=== PATIENT | male | born 1990 | race African-American/Black ===

== ENCOUNTER 2020-03-21 23:14 | Emergency (ER) | payer MEDICAID, OTHER ==
[~2020-03-21] VITALS: Ht 190.5 cm; Wt 147.4 kg
[2020-03-21 23:26] VITALS: BP 170/90
[2020-03-22] MEDS ORDERED: KETOROLAC TROMETH 60MG/2ML VIAL IM ONE (02:30)
== END 2020-03-22 02:50 | disposition home or self-care (01) ==
LOC: ER 23:14
DX: S33.5XXA Sprain of ligaments of lumbar spine, initial encounter (principal); M54.16 Radiculopathy, lumbar region; M25.552 Pain in left hip; E11.9 Type 2 diabetes mellitus without complications; X58.XXXA Exposure to other specified factors, initial encounter; Y93.89 Activity, other specified; Y92.89 Other specified places as the place of occurrence of the external cause; Y99.8 Other external cause status
CPT/HCPCS: 72100; 72192; 96372; 99284; J1885

== ENCOUNTER 2021-11-17 09:11 | Emergency (ER) | payer MEDICAID ==
[~2021-11-17] VITALS: Ht 190.5 cm; Wt 155.1 kg
[2021-11-17 09:42] LABS: Urine Bacteria NONE SEEN /hpf (None Seen); Urine Blood 1+ /uL (Negative); Urine Mucus FEW (None Seen); Urine Specific Gravity 1.025 (1.001-1.035); Urine WBC 20 /hpf (0 - 3)
[2021-11-17 10:00] LABS: Basophils # (auto) 0.1 10 ^3/uL (0-0.2); Basophils % (auto) 0.6 % (0.0-2.0); Eosinophils # (auto) 0.5 10 ^3/uL (0-0.8); Eosinophils % (auto) 5.9 % (0.0-7.0); Hematocrit 43.9 % (41.0-53.0); Hemoglobin 15.6 g/dL (13.5-17.5); Lymphocytes # (auto) 2.5 10 ^3/uL (0.4-5.4); Lymphocytes % (auto) 29.1 % (10.0-50.0); Mean Corpuscular Hgb Conc. 35.5 g/dL (32.0-36.0); Mean Corpuscular Volume 81.8 fL (80.0-100.0); Monocytes # (auto) 0.5 10 ^3/uL (0-1.3); Monocytes % (auto) 6.2 % (0.0-12.0); Neutrophils % (auto) 58.2 % (37.0-80.0); Nucleated Red Blood Cells % 0.4 %; Red Blood Cells 5.36 10^6/uL (4.5-5.90); Red Cell Distribution Width 13.8 % (11.8-14.3); White Blood Cell 8.7 10^3/uL (4.4-10.8)
[2021-11-17 10:27] LABS: Potassium 3.8 mmol/L (3.5-5.1)
[2021-11-17 10:36] LABS: Albumin 3.7 g/dL (3.4-5.0); BUN/Creatinine Ratio 7.1; Bilirubin, Total 0.6 mg/dL (0.2-1.0); Calcium 8.8 mg/dL (8.5-10.1); Total Protein 8.2 g/dL (6.4-8.2)
[2021-11-17] MEDS ORDERED: KETOROLAC TROMETH 60MG/2ML VIAL IM ONE (10:45)
[2021-11-17 12:15] LABS: Lactic Acid w/Reflex 2.4 mmol/L (0.4-2.0)
[2021-11-17] MEDS ORDERED: cefTRIAXone 1GM/50ML D5W 50 ML IV ONE (13:15)
[2021-11-17] MEDS ORDERED: SODIUM CHLORIDE 0.9% 1,000 ML IV ONE (13:15)
[2021-11-17] MEDS ORDERED: CIPR-173 PO (15:46)
[2021-11-17 16:01] VITALS: BP 139/72
== END 2021-11-17 16:04 | disposition home or self-care (01) ==
LOC: ER 09:11
DX: N39.0 Urinary tract infection, site not specified (principal); E11.9 Type 2 diabetes mellitus without complications; Z88.0 Allergy status to penicillin
CPT/HCPCS: 36415; 74176; 80053; 81001; 83605; 83690; 85025; 87040; 96365; 96372; 99284; J0696; J1885; J7030

== ENCOUNTER → 2023-12-27 | Emergency (ER) | payer MEDICAID ==
[~2023-12-27] VITALS: Ht 190.5 cm; Wt 144.0 kg
[~2023-12-27] MED LIST: CIPR-173 PO
[2023-12-27 21:52] VITALS: BP 134/75; PULSE 84; RESP 18; O2SAT 98
== END | disposition left against medical advice (07) ==
LOC: ER 21:18
DX: S99.911A Unspecified injury of right ankle, initial encounter (principal); Z53.21 Procedure and treatment not carried out due to patient leaving prior to being seen by health care provider; W20.8XXA Other cause of strike by thrown, projected or falling object, initial encounter; Y93.89 Activity, other specified; Y92.89 Other specified places as the place of occurrence of the external cause; Y99.8 Other external cause status
CPT/HCPCS: 73610; 73630

== ENCOUNTER 2024-06-28 06:37 | Inpatient (IN) | payer MEDICAID ==
[~2024-06-28] VITALS: Ht 188 cm; Wt 144.7 kg
--- NOTE | 2024-06-28 06:46 | ECG ---
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
--- NOTE | 2024-06-28 07:04 | ED.PDOC ---
HPI Comments 34y M who presents to the ED via EMS for chief complaint of chest pain. Pt states he was watching TV earlier this AM and states he suddenly started to have chest pain with shorntess of breath and called EMS to the scene. Pt states his chest pain was substernal, rating the pain 5/10, non-radiating, with no associated exacerbating or relieving factors. Pt states he took 324 ASA with no relief of symptoms prior to ED arrival. EMS states pt was not given anything additional prior to ED arrival as 911 operaor advised pt to take additional ASA just prior to ED arrival. Pt in the ED, has normal vitals. Pt otherwise states he has defect to repair pulmonic valve in 1 month at [facility]. Pt otherwise denies any other symptoms at this time. 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, Allergies Allergies: Coded Allergies: Penicillins (Verified Allergy, Severe, 11/17/21) Home Meds Active Scripts Ciprofloxacin Hcl (Cipro) 500 Mg Tab, 500 MG PO BID for 7 Days, #14 BOTTLE Prov:JEROME GARRISON MD 11/17/21 Information Source: Patient, Emergency Med Personnel Mode of Arrival: EMS Brought in by: EMS Past Medical History PAST MEDICAL HISTORY: DM Surgical History: Denies all surgeries Family History Family History: Reviewed,noncontributory to illness, No family hx of Cancer, No family hx of DM, No family hx of Heart cm, No family hx of HTN, No family hx ofKidney cm, No family hx of Liver cm, No family hx of Lung cm, No family hx of Stroke Social History Smoker: Non-Smoker Alcohol: Denies ETOH Use Drugs: Denies Drug Use Lives In: Home Constitutional: denies: chills, diaphoresis, fatigue, fever, malaise, sweats, weakness, others EENTM: denies: blurred vision, double vision, ear bleeding, ear discharge, ear drainage, ear pain, ear ringing, eye pain, eye redness, hearing loss, mouth pain, mouth swelling, nasal discharge, nose bleeding, nose congestion, nose pain, photophobia, tearing, throat pain, throat swelling, voice changes, others Respiratory: denies: cough, hemoptysis, orthopnea, SOB at rest, shortness of breath, SOB with excertion, stridor, wheezing, others Cardiovascular: reports: chest pain; denies: dizzy spells, diaphoresis, Dyspnea on exertion, edema, irregular heart beat, left arm pain, lightheadedness, palpitations, PND, syncope, others Gastrointestinal: denies: abdomen distended, abdominal pain, blood streaked bowels, constipated, diarrhea, dysphagia, difficulty swallowing, hematemesis, melena, nausea, poor appetite, poor fluid intake, rectal bleeding, rectal pain, vomiting, others Genitourinary: denies: burning, dysuria, flank pain, frequency, hematuria, incontinence, penile discharge, penile sore, pain, testicle pain, testicle swelling, urgency, others Neurological: denies: dizziness, fainting, headache, left sided numbness, left sided weakness, numbness, paresthesia, pre-existing deficit, right sided numbness, right sided weakness, seizure, speech problems, tingling, tremors, weakness, others Musculoskeletal: denies: back pain, gout, joint pain, joint swelling, muscle pain, muscle stiffness, neck pain, others Integumetry: denies: bruises, change in color, change in hair/nails, dryness, laceration, lesions, lumps, rash, wounds, others Allergic/Immunocompromised: denies: Difficulty Healing, Frequent Infections, Hives, Itching, others Hematologic/Lymphatic: denies: anemia, blood clots, easy bleeding, easy bruising, swollen glands, others Endocrine: denies: excessive hunger, excessive sweating, excessive thirst, excessive urination, flushing, intolerance to cold, intolerance to heat, unexplained weight gain, unexplained weight loss, others Psychiatric: denies: anxiety, bipolar disorder, depression, hopeless, panic disorder, schizophrenia, sleepless, suicidal, others All Other Systems: Reviewed and Negative Physical Exam General Appearance: No Apparent Distress, Normal HEENT: Normal ENT Inspection, Pharynx Normal, TMs Normal Neck: Full Range of Motion, Non-Tender, Normal, Normal Inspection Respiratory: Chest Non-Tender, Lungs Clear, No Accessory Muscle Use, No Respira tory Distress, Normal Breath Sounds Cardiovascular: No Edema, No JVD, No Murmur, No Gallop, Normal Peripheral Pulses, Regular Rate/Rhythm Breast Exam: Deferred Gastrointestinal: No Organomegaly, Non Tender, No Pulsatile Mass, Normal Bowel Sounds, Soft Genitalia: Deferred Pelvic: Deferred Rectal: Deferred Extremities: No calf tenderness, Normal capillary refill, Normal inspection, Normal range of motion, Non-tender, No pedal edema Musculoskeletal : Apperance: Normal Neurologic: Alert, radiochemical technician II-XII nml as Tested, No Motor Deficits, Normal Affect, Normal Mood, No Sensory Deficits Cerebellar Function: Normal Reflexes: Normal Skin: Dry, Normal Color, Warm Lymphatic: No Adenopathy Was a procedure done? Was a procedure done?: No CP Differential Dx Differential Diagnosis: Angina, Electrolyte Disorder Differential Diagnosis: Chest Wall Pain, Costochondritis, Pericarditis X-Ray, Labs, Meds, VS Vital Signs Date Time Temp Pulse Resp B/P (MAP) Pulse Ox O2 Delivery O2 Flow Rate FiO2 06/28/24 08:02 99.5 97 18 132/87 (102) 94 99.5 06/28/24 08:02 97 06/28/24 07:28 96 06/28/24 06:40 99.5 97 16 132/87 (102) 93 06/28/24 06:38 95 Lab Test 06/28/24 08:25 06/28/24 06:56 Range/Units Troponin I High Sensitivity < 3 L < 3 L </=54 ng/L White Blood Count 21.5 H 4.4-10.8 10^3/uL Red Blood Count 5.30 4.5-5.90 10^6/uL Hemoglobin 15.1 13.5-17.5 g/dL Hematocrit 43.6 41.0-53.0 % Mean Corpuscular Volume 82.2 80.0-100.0 fL Mean Corpuscular Hemoglobin 28.6 28.0-32.0 pg Mean Corpuscular Hemoglobin Concent 34.7 32.0-36.0 g/dL Red Cell Distribution Width 13.9 11.8-14.3 % Platelet Count 262 140-450 10^3/uL Mean Platelet Volume 8.8 6.9-10.8 fL Neutrophils (%) (Auto) 74.2 37.0-80.0 % Lymphocytes (%) (Auto) 13.3 10.0-50.0 % Monocytes (%) (Auto) 7.7 0.0-12.0 % Eosinophils (%) (Auto) 4.3 0.0-7.0 % Basophils (%) (Auto) 0.5 0.0-2.0 % Neutrophils # (Auto) 16.0 H 1.6-8.6 10 ^3/uL Lymphocytes # (Auto) 2.9 0.4-5.4 10 ^3/uL Monocytes # (Auto) 1.6 H 0-1.3 10 ^3/uL Eosinophils # (Auto) 0.9 H 0-0.8 10 ^3/uL Basophils # (Auto) 0.1 0-0.2 10 ^3/uL Nucleated Red Blood Cells 0.0 % Sodium Level 135 L 136-145 mmol/L Potassium Level 4.3 3.5-5.1 mmol/L Chloride Level 100 98-107 mmol/L Carbon Dioxide Level 29 20-31 mmol/L Anion Gap 6 5-15 Blood Urea Nitrogen 9 9-23 mg/dL Creatinine 1.27 0.700-1.30 mg/dL Glomerular Filtration Rate Calc 77 >90 mL/min BUN/Creatinine Ratio 7.1 L 10.0-20.0 Serum Glucose 210 H 74-106 mg/dL Calcium Level 10.3 8.7-10.4 mg/dL [place] [id number] Ph: [phone] DIAGNOSTIC IMAGING Diagnostic Imaging Report : [id number] Signed PATIENT: JONEL BAILEY ACCT: [id number] UNIT: [id number] : 1990 LOC: ER ROOM / BED: / AGE / SEX: 34 / M ADM STATUS: REG ER SERVICE 0643 ORDERING PHYSICIAN: MICHAEL LOPEZ MD PROCEDURE(s): CXR2 - CHEST TWO VIEWS ROUTINE REASON: chest pain ORDER NUMBER(s): [id number], ACCESSION NUMBER(s): [id number] XY CHEST TWO VIEWS ROUTINE CLINICAL HISTORY: Chest pain COMPARISON: None. TECHNIQUE: Frontal and lateral view of the chest was obtained FINDINGS: Lines and Tubes: None Lungs: Bibasilar atelectasis. No focal consolidation. Pleura: No effusion. No pneumothorax. Cardiomediastinal contours: Unremarkable Bones: No acute osseous abnormality. IMPRESSION: 1. No acute cardiopulmonary disease. ATED BY: LIBBY LU MD DICTATED DATE/TIME: 06/28/24725 SIGNED BY: LIBBY LU MD SIGNED DATE/TIME: 06/28/24725 CC: Time of 1ST Reevaluation: 07:35 Reevaluation 1ST: Unchanged Patient Education/Counseling: Diagnosis, Treatment Family Education/Counseling: No Family Present Departure 1 Departure Time of Disposition: 10:00 (Patient presented with chest pain that was concerning for possible STEMI, ACS, PE, Pneumonia, Muscle Strain, COPD, Dissection. Data: 1. I ordered and reviewed the result of at least 3 labs including a CBC, BMP, and Troponin. 2. I independently interpreted the following tests: EKG which shows sinus rhythm a and Chest X-ray which shows benign chest.Risk:This patient has a high risk of morbidity due to further diagnostic testing or treatment and may suffer from an acute cardiac or respiratory disorder. Workup reveals elevated white count but no infectious symptoms. Patient may have had an elevated white count secondary to the nausea and vomiting. Patient is high-risk for chest pain with follows with manager distribution for possible valve replacements and patient should be admitted for further workup and possible expert consultation. ) Impression: Primary Impression: Acute chest pain Additional Impression: Elevated white blood cell count, unspecified Qualified Codes: D72.829 - Elevated white blood cell count, unspecified Disposition: ADMITTED INPATIENT Admit to: Med Surg Condition: Serious Critical Care Note Critical Care Time?: No Stability Stability form required: No Heart Score Heart Score: Heart Score Response (Comments) Value History Moderate Suspicious 1 EKG Repolarization Disturb 1 Age <45 0 Risk Factors 1 or 2 risk factors 1 Troponin 1-2 x's Normal limit 1 Total 4 I personally scribed for MICHAEL LOPEZ MD ([email or web address]) on 06/28/24 at 07:04. Electronically submitted by Elvie Erickson ([employer]). I personally scribed for MICHAEL LOPEZ MD ([email or web address]) on 06/28/24 at 08:32. Electronically submitted by Elvie Erickson ([employer]). MICHAEL LOPEZ MD Jun 28, 2024 07:04
[2024-06-28 07:20] LABS: Chloride 100 mmol/L (98-107); Potassium 4.3 mmol/L (3.5-5.1); Sodium 135 mmol/L (136-145)
[2024-06-28 07:21] LABS: Anion Gap 6 (5-15); Carbon Dioxide 29 mmol/L (20-31)
[2024-06-28 07:22] LABS: Calcium 10.3 mg/dL (8.7-10.4)
[2024-06-28 07:25] LABS: Basophils # (auto) 0.1 10 ^3/uL (0-0.2); Basophils % (auto) 0.5 % (0.0-2.0); Eosinophils # (auto) 0.9 10 ^3/uL (0-0.8); Eosinophils % (auto) 4.3 % (0.0-7.0); Hematocrit 43.6 % (41.0-53.0); Hemoglobin 15.1 g/dL (13.5-17.5); Lymphocytes # (auto) 2.9 10 ^3/uL (0.4-5.4); Lymphocytes % (auto) 13.3 % (10.0-50.0); Mean Corpuscular Hemoglobin 28.6 pg (28.0-32.0); Mean Corpuscular Hgb Conc. 34.7 g/dL (32.0-36.0); Mean Corpuscular Volume 82.2 fL (80.0-100.0); Monocytes # (auto) 1.6 10 ^3/uL (0-1.3); Monocytes % (auto) 7.7 % (0.0-12.0); Neutrophils % (auto) 74.2 % (37.0-80.0); Platelet Count (auto) 262 10^3/uL (140-450); Red Cell Distribution Width 13.9 % (11.8-14.3); White Blood Cell 21.5 10^3/uL (4.4-10.8)
[2024-06-28 07:26] LABS: BUN/Creatinine Ratio 7.1 (10.0-20.0); Blood Urea Nitrogen 9 mg/dL (9-23); Glucose 210 mg/dL (74-106)
--- NOTE | 2024-06-28 07:29 | DVH ---
XY CHEST TWO VIEWS ROUTINE CLINICAL HISTORY: Chest pain COMPARISON: None. TECHNIQUE: Frontal and lateral view of the chest was obtained FINDINGS: Lines and Tubes: None Lungs: Bibasilar atelectasis. No focal consolidation. Pleura: No effusion. No pneumothorax. Cardiomediastinal contours: Unremarkable Bones: No acute osseous abnormality. IMPRESSION: 1. No acute cardiopulmonary disease.
[2024-06-28] MEDS ORDERED: LORazepam 0.5 MG TAB PO PRN (11:00)
[2024-06-28] MEDS ORDERED: DEXTROSE (50%) 50ML SYRG IV PRN (11:00)
[2024-06-28] MEDS ORDERED: ACETAMINOPHEN 325 MG TAB PO PRN (11:00)
[2024-06-28] MEDS ORDERED: ZOLPIDEM TARTRATE 5 MG TAB PO PRN (11:00)
[2024-06-28] MEDS ORDERED: ONDANSETRON HCL 4 MG/2 ML VIAL IV PRN (11:00)
[2024-06-28] MEDS ORDERED: NITROGLYCERIN 0.4 MG SL TAB SL PRN (11:00)
[2024-06-28] MEDS ORDERED: MORPHINE SULFATE INJ 2 MG/ml SYRG IV PRN (11:00)
--- NOTE | 2024-06-28 11:28 | DVHHP2 ---
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 as well as uncontrolled DM came to the ed for evaluation of stated severe chest pain that woke the patient out of sleep with severe crushing pain patients trops were negative on ed evaluation but continues to have severe pain and given cardiac history recommended for further evaluation and continued management Cardiovascular: HTN Endocrine: Diabetes Review of Systems Constitutional: No: Fever, Chills, Sweats, Weakness, Malaise, Other Eyes: No: Pain, Vision change, Conjunctivae inflammation, Eyelid inflammation, Other, Redness ENT: No: Ear pain, Ear discharge, Nose pain, Nose discharge, Nose congestion, Mouth pain, Mouth swelling, Throat pain, Throat swelling, Other Respiratory: Shortness of breath; No: Cough, Dry, SOB with excertion, Wheezing, Hemoptysis, Pleuritic Pain, Sputum, Wheezing, Other Cardiovascular: Chest Pain, Palpitations; No: Orthopnea, Paroxysmal Noc. Dyspnea, Edema, Lt Headedness, Other Gastrointestinal: No: Nausea, Vomiting, Abdominal Pain, Diarrhea, Constipation, Melena, Hematochezia, Other Genitourinary: No Dysuria, No Frequency, No Incontinence, No Hematuria, No Retention, No Other Musculoskeletal: No: other, neck pain, shoulder pain, arm pain, back pain, hand pain, leg pain, foot pain Skin: No: Rash, Lesions, Jaundice, Bruising, Other Neurological: No: Weakness, Numbness, Incoordination, Change in speech, Confusion, Seizures, Other Allergies: Coded Allergies: Penicillins (Verified Allergy, Severe, 11/17/21) Exam Vital Signs Vital Signs Date Time Temp Pulse Resp B/P (MAP) Pulse Ox O2 Delivery O2 Flow Rate FiO2 06/28/24 10:08 96 15 123/79 (94) 95 06/28/24 08:02 99.5 99.5 General Appearance: Oriented X3, Cooperative HEENT: Atraumatic Respiratory: Clear to auscultation, Normal air movement Cardiovascular: Regular rate, Normal S1, Normal S2 Abdominal: Normal bowel sounds, Soft Extremities: No clubbing, No cyanosis Skin: No rashes, No breakdown Neuro: Normal speech Psych/Mental Status: Mood NL Labs/Xrays Labs Test 06/28/24 08:25 06/28/24 06:56 Range/Units Troponin I High Sensitivity < 3 L </=54 ng/L White Blood Count 21.5 H 4.4-10.8 10^3/uL Red Blood Count 5.30 4.5-5.90 10^6/uL Hemoglobin 15.1 13.5-17.5 g/dL Hematocrit 43.6 41.0-53.0 % Mean Corpuscular Volume 82.2 80.0-100.0 fL Mean Corpuscular Hemoglobin 28.6 28.0-32.0 pg Mean Corpuscular Hemoglobin Concent 34.7 32.0-36.0 g/dL Red Cell Distribution Width 13.9 11.8-14.3 % Platelet Count 262 140-450 10^3/uL Mean Platelet Volume 8.8 6.9-10.8 fL Neutrophils (%) (Auto) 74.2 37.0-80.0 % Lymphocytes (%) (Auto) 13.3 10.0-50.0 % Monocytes (%) (Auto) 7.7 0.0-12.0 % Eosinophils (%) (Auto) 4.3 0.0-7.0 % Basophils (%) (Auto) 0.5 0.0-2.0 % Neutrophils # (Auto) 16.0 H 1.6-8.6 10 ^3/uL Lymphocytes # (Auto) 2.9 0.4-5.4 10 ^3/uL Monocytes # (Auto) 1.6 H 0-1.3 10 ^3/uL Eosinophils # (Auto) 0.9 H 0-0.8 10 ^3/uL Basophils # (Auto) 0.1 0-0.2 10 ^3/uL Nucleated Red Blood Cells 0.0 % Sodium Level 135 L 136-145 mmol/L Potassium Level 4.3 3.5-5.1 mmol/L Chloride Level 100 98-107 mmol/L Carbon Dioxide Level 29 20-31 mmol/L Anion Gap 6 5-15 Blood Urea Nitrogen 9 9-23 mg/dL Creatinine 1.27 0.700-1.30 mg/dL Glomerular Filtration Rate Calc 77 >90 mL/min BUN/Creatinine Ratio 7.1 L 10.0-20.0 Serum Glucose 210 H 74-106 mg/dL Calcium Level 10.3 8.7-10.4 mg/dL Assessment/Plan Assessment/Plan Admit Med/Surge Chest Pain No acute changes in Trops History of Plumonic Valve insufficiency Echo for valvular evaluation BNP ordered for evaluation of Heart Failure vs Pulmonary HTN possibly cardio eval if echo is poor chest pain protocol leukocytosis unconfirmed source Rocephin trial dose DM uncontrolled morbidly obese patient BMI>40 hyperglycemia uncontrolled sugars insulin sliding scale Plan discussed with: Patient My Orders Orders - SILVANA MCADAMS MD Procedure Category Date Status Time B-Type Natriuretic LAB 06/28/24 Logged Peptide 10:48 Urinalysis LAB 06/28/24 Logged 10:48 Admit ADMIT 06/28/24 Transmitted 10:48 Code Status CODE 06/28/24 Transmitted 10:48 Cardiac DIET 06/28/24 Transmitted Diet-2gna,Lofat,Lochol Lunch Aspirin Tablet PHA 06/29/24 Logged 10:00 Clopidogrel Bisulfate PHA 06/29/24 Logged (Plavix) 10:00 Atorvastatin (Lipitor) PHA 06/28/24 Logged 22:00 Metoprolol Tartrate PHA 06/28/24 Logged Tablet (Lopressor Ta 22:00 Acetaminophen Tablet PHA 06/28/24 Logged (Tylenol Tablet) 11:00 Zolpidem Tartrate PHA 06/28/24 Logged (Ambien) 11:00 Lorazepam Tablet PHA 06/28/24 Logged (Ativan Tablet) 11:00 Docusate Sodium PHA 06/29/24 Logged Capsule (Colace 10:00 Complete Blood Count LAB 06/29/24 Verified 04:00 Basic Metabolic Panel LAB 06/29/24 Verified 04:00 Echo 2d Mode Cardiac US 06/28/24 Logged DOP 10:48 Ondansetron Hcl PHA 06/28/24 Logged (Zofran) 11:00 Electrocardigram EKG 06/28/24 Logged 10:48 Alum & Mag PHA 06/28/24 Logged Hydrox-Simethicone 11:00 Troponin-I Hs LAB 06/28/24 Transmitted 10:48 Lisinopril Tablet PHA 06/29/24 Transmitted (Zestril Tablet) 10:00 Nitroglycerin PHA 06/28/24 Transmitted Sublingual (Ntrostat 11:00 Morphine Sulfate PHA 06/28/24 Transmitted Injection 11:00 Notify Of Changes LISA 06/28/24 In Process From Base 10:48 Emergency Dysrhythmia LISA 06/28/24 In Process Protocol 10:48 Rhythm Strips Once LISA 06/28/24 In Process Every Shift 10:48 Oxygen By Nasal RT 06/28/24 Transmitted Cannula 10:48 Glucose Blood PHA 06/28/24 Transmitted (Accu-Chek Comfort 12:00 Moderate Insulin Ss PHA 06/28/24 Transmitted 12:00 Dextrose 50% Syringe PHA 06/28/24 Transmitted 11:00 Problem List: (1) Acute chest pain (2) Elevated white blood cell count, unspecified Date of Service: Jun 28, 2024 Billing Provider: SILVANA MCADAMS MD Common Visit Codes: [id number] INP/OBS CARE (HIGH) SILVANA MCADAMS MD Jun 28, 2024 11:28
[2024-06-28] MEDS: MAALOX PLUS or MAALOX 30 ML PO ONE (12:32)
[2024-06-28] MEDS: InsuLIN REG 1unit/0.01ml Soln (100units/ml) SC SCH (12:37)
[2024-06-28] MEDS: ACCU-CHEK COMFORT CURVE STRIP VI SCH (12:40)
[2024-06-28] MEDS: cefTRIAXone 1GM/50ML D5W 50 ML IV SCH (13:32)
--- NOTE | 2024-06-28 14:45 | DVHSR ---
APPROVED REPORT EXAM: LIMITED Two-dimensional and M-mode echocardiogram with Doppler and color Doppler. Blood Pressure: 123/79 mmHg INDICATION Chest Pain RISK FACTORS Obesity: Height: 6' 2", Weight: 317 DIMENSIONS LVDd5.0 (3.8-5.7cm)LA (2D)4.0 (1.9-4.0cm)Aortic Root3.2 (2.0-3.7cm) LVDs3.4 (2.5-4.0cm)LA (MM) (1.9-4.0cm)Aortic Cusp Exc1.6 (1.5-2.0cm) EF (%) 60.0 (55-70%)Rt. Atrium (1.9-4.0cm)Asc. Aorta cm IVSd1.1 (0.7-1.1cm)RV (D) (1.8-2.4cm) PWd1.0 (0.7-1.1cm) Mitral Valve MitralMitral Stenosis E wave0.70m/sMV Mean GR.mmHg A wave0.70m/sMV Peak GR.mmHg E/A ratio1.02D MVAcm2 Aortic Valve Aortic ValveAortic Stenosis V10.70m/Dennis Mean GR.3mmHg V21.10m/Dennis Peak GR.5mmHg LVOT Diameter2.4 (1.8-2.4cm)Doppler AVA2.88cm2 Pulmonic Valve V20.70m/s Other Information Quality : Technically LimitedRhythm : Technically limited study due to body habitus. Conclusion Normal left ventricular size and dimension. Normal left ventricular systolic function estimated ejec tion fraction 55%. There is a grade 1 diastolic dysfunction. Normal right ventricular size and dimension. Normal right ventricular systolic function. Normal biatrial size and dimension. Normal aortic valve structure and function. Normal mitral valve structure and function. Normal tricuspid valve function. The pulmonary valve is grossly normal. No pericardial effusion.
[2024-06-28 16:55] VITALS: BP 138/76; PULSE 80; RESP 18; TEMP 99; O2SAT 96
[2024-06-28 17:37] LABS: Urine Bacteria FEW /hpf (None Seen); Urine Blood Negative /uL (Negative); Urine Clarity Clear (Clear); Urine Color Yellow (Yellow); Urine Protein, UAD TRACE (Negative); Urine Specific Gravity 1.025 (1.001-1.035); Urine Urobilinogen 3 mg/dL (Negative); Urine WBC 15 /hpf (0 - 3)
--- NOTE | 2024-06-28 19:08 | ECG ---
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
[2024-06-28 21:08] VITALS: PULSE 79; RESP 18; O2SAT 97
[2024-06-28 21:09] VITALS: BP 137/79; PULSE 102; RESP 18; TEMP 99.4; O2SAT 99
[2024-06-28] MEDS: ATORVASTATIN 20 MG TAB PO SCH (21:13)
[2024-06-28] MEDS: METOPROLOL TARTRATE 25 MG TAB PO SCH (21:16)
[2024-06-28] MEDS ORDERED: GLIP10TA9 PO (23:59)
[2024-06-29] VITALS (11 sets, daily range): BP systolic 97–138; BP diastolic 55–82; PULSE 75–94; RESP 18–20; TEMP 98.1–98.6; O2SAT 93–97
[2024-06-29 06:18] LABS: Basophils # (auto) 0.1 10 ^3/uL (0-0.2); Basophils % (auto) 0.7 % (0.0-2.0); Eosinophils # (auto) 1.2 10 ^3/uL (0-0.8); Hematocrit 39.6 % (41.0-53.0); Hemoglobin 14.2 g/dL (13.5-17.5); Lymphocytes # (auto) 2.9 10 ^3/uL (0.4-5.4); Lymphocytes % (auto) 17.3 % (10.0-50.0); Mean Corpuscular Hemoglobin 29.1 pg (28.0-32.0); Mean Corpuscular Hgb Conc. 35.8 g/dL (32.0-36.0); Mean Corpuscular Volume 81.3 fL (80.0-100.0); Monocytes # (auto) 1.3 10 ^3/uL (0-1.3); Monocytes % (auto) 7.9 % (0.0-12.0); Neutrophils # (auto) 11.1 10 ^3/uL (1.6-8.6); Neutrophils % (auto) 67.1 % (37.0-80.0); Nucleated Red Blood Cells % 0.1 %; Platelet Count (auto) 239 10^3/uL (140-450); Red Blood Cells 4.87 10^6/uL (4.5-5.90); Red Cell Distribution Width 13.9 % (11.8-14.3); White Blood Cell 16.6 10^3/uL (4.4-10.8)
[2024-06-29 06:35] LABS: Calcium 9.7 mg/dL (8.7-10.4); Chloride 102 mmol/L (98-107); Potassium 3.8 mmol/L (3.5-5.1); Sodium 137 mmol/L (136-145)
[2024-06-29 06:36] LABS: Anion Gap 7 (5-15); Carbon Dioxide 28 mmol/L (20-31)
[2024-06-29 06:42] LABS: BUN/Creatinine Ratio 8.6 (10.0-20.0); Blood Urea Nitrogen 10 mg/dL (9-23); Glucose 168 mg/dL (74-106)
[2024-06-29] MEDS: CLOPIDOGREL BISULFATE 75 MG TAB PO SCH (09:38)
[2024-06-29] MEDS: ASPirin 81 mg TAB PO SCH (09:39)
[2024-06-29] MEDS: DOCUSATE SOD 100 MG CAP PO SCH (09:39)
[2024-06-29] MEDS: LISINOPRIL 5 MG TAB PO SCH (09:40)
--- NOTE | 2024-06-29 13:15 | DVHPN2 ---
Reviewed: Care Plan, H&P, Labs, Medications, Previous Orders, Radiology Changes from previous H/P or p: No Changes Eyes: No Pain, No Vision change, No Conjunctivae inflammation, No Eyelid inflammation, No Other, No Redness ENT: No Ear pain, No Ear discharge, No Nose pain, No Nose discharge, No Nose congestion, No Mouth pain, No Mouth swelling, No Throat pain, No Throat swelling, No Other Cardiovascular: Chest Pain, Palpitations; No Orthopnea, No Paroxysmal Noc. Dyspnea, No Edema, No Lt Headedness, No Other Respiratory: No Cough, No Dry; Shortness of breath; No SOB with excertion, No Wheezing, No Hemoptysis, No Pleuritic Pain, No Sputum, No Other Gastrointestinal: No Nausea, No Vomiting, No Abdominal Pain, No Diarrhea, No Constipation, No Melena, No Hematochezia, No Other Genitourinary: No Dysuria, No Frequency, No Incontinence, No Hematuria, No Retention, No Other Musculoskeletal: No other, No neck pain, No shoulder pain, No arm pain, No back pain, No hand pain, No leg pain, No foot pain Skin: No Rash, No Lesions, No Jaundice, No Bruising, No Other Objective Vitals Vital Signs Date Time Temp Pulse Resp B/P (MAP) Pulse Ox O2 Delivery O2 Flow Rate FiO2 06/29/24 09:40 125/78 06/29/24 09:40 77 06/29/24 09:00 98.3 19 96 98.3 06/29/24 08:00 Room Air* 0 21 Intake/Output Intake and Output 06/29/24 07:00 Intake Total 550 ml Balance 550 ml Intake Oral 500 ml IV Total 50 ml # Voids 1 Medications Current Medications Medications Dose Ordered Sig/Funmi Route Start Time Stop Time Status Last Admin Dose Admin Aspirin 81 mg DAILY PO 06/29/24 10:00 06/29/24 09:39 81 MG Clopidogrel Bisulfate 75 mg DAILY PO 06/29/24 10:00 06/29/24 09:38 75 MG Atorvastatin Calcium 40 mg HS PO 06/28/24 22:00 06/28/24 21:13 40 MG Metoprolol Tartrate 25 mg Q12HR PO 06/28/24 22:00 06/29/24 09:40 25 MG Acetaminophen 650 mg Q6HP PRN PO 06/28/24 11:00 Zolpidem Tartrate 5 mg QHSP PRN PO 06/28/24 11:00 Lorazepam 0.5 mg Q6HP PRN PO 06/28/24 11:00 Docusate Sodium 100 mg DAILY PO 06/29/24 10:00 Ondansetron HCl 4 mg Q4HP PRN IV 06/28/24 11:00 Lisinopril 10 mg DAILY PO 06/29/24 10:00 06/29/24 09:40 10 MG Nitroglycerin 0.4 mg Q5MINP PRN SL 06/28/24 11:00 Morphine Sulfate 2 mg Q30M PRN IV 06/28/24 11:00 Diagnostic Test (Pha) 1 strip IQ4HR 06/28/24 12:00 06/29/24 12:25 1 STRIP Insulin Human Regular IQ4HR SC 06/28/24 12:00 06/29/24 12:25 9 UNITS Dextrose 50 ml UD PRN IV 06/28/24 11:00 Ceftriaxone Sodium 50 ml @ 100 mls/hr DAILY IV 06/28/24 11:30 06/29/24 09:38 100 MLS/HR Laboratory Results Laboratory Tests 06/29/24 05:37 Chemistry Test 06/29/24 05:37 Calcium Level 9.7 mg/dL (8.7-10.4) Urinalysis Test 06/28/24 17:00 Urine Color Yellow (Yellow) Urine Clarity Clear (Clear) Urine pH 7.0 (5.0-9.0) Urine Specific [place] 1.025 (1.001-1.035) Urine Protein Trace (Negative) H Urine Ketones Trace (Negative) Urine Blood Negative /uL (Negative) Urine Nitrite Negative (Negative) Urine Bilirubin Negative (Negative) Urine Urobilinogen 3 mg/dL (Negative) H Urine Leukocyte Esterase Trace /uL (Negative) Urine RBC 2 /hpf (0 - 3) Urine WBC 15 /hpf (0 - 3) Urine Squamous Epithelial Cells Few /hpf (<5) Urine Bacteria Few /hpf (None Seen) H Urine Glucose 3+ mg/dL (Normal) H Labs and/or images reviewed: Labs reviewed by me, Image(s) reviewed by me Assessment/Plan Assessment/Plan Chest pain rule out coronary artery disease: Troponin negative x3 Treatment per ACS protocol cardiology consult for Dr.Al Hejily Uncontrolled Diabetes: Insulin sliding scale Acute urinary tract infection: Urine cultures Rocephin Morbid obesity BMI of 41 Time spent 45 minutes Plan discussed with: Patient My Orders Orders - JAYME AU MD Procedure Category Date Status Time * Cardiology Consult CONS 06/29/24 Verified 13:09 Date of Service: Jun 29, 2024 Billing Provider: JAYME AU MD Common Visit Codes: [id number] INP/OBS CARE(HIGH) JAYME AU MD Jun 29, 2024 13:15
[2024-06-29 13:47] LABS: Triglycerides 101 mg/dL (< 150)
[2024-06-29 13:48] LABS: LDL Cholesterol 96 mg/dL (< 100)
[2024-06-29 13:49] LABS: Cholesterol 157 mg/dL (< 200); HDL Cholesterol 39 mg/dL (40-59)
--- NOTE | 2024-06-29 15:26 | DVHINCON2 ---
Date Seen: Jun 29, 2024 Referring Physician MD Leonid Reason for Consultation Chest pain History of Present Illness This is a 34-year-old male patient who presents to the emergency room with chief complaint of chest pain that began yesterday. The patient reports he was watching TV when suddenly he is began to feel chest pain. He describes the pain as unprovoked, squeezing in nature, substernal, and nonradiating. Associated symptoms include shortness of breath. He denies any alleviating or precipitating factors. Patient reports that the pain lasted approximately 20 minutes. He called emergency medical services and was brought to the emergency room for further evaluation. Initial twelve lead electrocardiogram reveals normal sinus rhythm without any significant ST segment changes. Initial serial troponin levels have been negative. Significant past medical history includes hypertension, type 2 diabetes mellitus, and morbid obesity. The patient reports he has seen a painter airbrush at [facility] regarding issues with his pulmonary valve. He reports his next follow up with his painter airbrush at [facility] is on July. He denies any previous ischemic workup. Past Medical History Past medical history reviewed. No other significant than mentioned above. Past Surgical History Appendectomy Family History: Patient reports no known family medical history. Family History Family history reviewed. Social History Denies the use of tobacco, alcohol or illicit drugs. Allergies: Coded Allergies: Penicillins (Verified Allergy, Severe, 11/17/21) Home Meds Reported Medications Glipizide (Glipizide) 10 Mg Tab, 1 TAB PO DAILY, #60 TAB 5 Refills 06/28/24 Home Meds Home medications reviewed. Current Medications Current Medications Medications (Trade) Dose Ordered Sig/Funmi Route PRN Reason Start Time Stop Time Status Last Admin Aspirin 81 mg DAILY PO 06/29/24 10:00 06/29/24 09:39 Clopidogrel Bisulfate (Plavix) 75 mg DAILY PO 06/29/24 10:00 06/29/24 09:38 Atorvastatin Calcium (Lipitor) 40 mg HS PO 06/28/24 22:00 06/28/24 21:13 Metoprolol Tartrate (Lopressor Tablet) 25 mg Q12HR PO 06/28/24 22:00 06/29/24 09:40 Docusate Sodium (Colace Capsule) 100 mg DAILY PO 06/29/24 10:00 Lisinopril (Zestril Tablet) 10 mg DAILY PO 06/29/24 10:00 06/29/24 09:40 Review of Systems Constitutional: No symptom reported Ears, Nose, & Throat: No symptom reported Eyes: No symptom reported Neurological: No symptoms reported Pulmonary/Respiratory: No symptoms reported Cardiovascular: Chest pain Gastrointestinal: No symptom reported Genitourinary: No symptom reported Musculoskeletal: No symptom reported Skin: No symptom reported Psychiatric: No symptom reported Endocrine: No symptom reported Hematologic/Lymphatic: No symptom reported Vital Signs Vital Signs Date Time Temp Pulse Resp B/P (MAP) Pulse Ox O2 Delivery O2 Flow Rate FiO2 06/29/24 13:00 98.1 75 19 111/57 (75) 96 98.1 06/29/24 08:00 Room Air* 0 21 Physical Exam General Appearance: Cooperative. Morbidly obese Pulmonary/Respiratory: Clear, bilateral breaths sounds. Cardiovascular/Chest: Regular rate and rhythm. Peripheral Pulses: 2+ Radial (R). 2+ Radial (L). 2+ Pedal (R). 2+ Pedal (L) Abdominal Exam: Normal bowel sounds. Ankle Exam: Negative ankle edema Lower extremities: Negative lower extremity edema Neuro/Mental Status: A/OX4, coherent. Thoughts/Psych: Normal thought pattern. Appropriate mood and affect. Good judgment and insight. Appearance: No acute distress. Skin Exam: Normal inspection. Normal color. Warm and dry. Labs/Diagnostic Data Labs Test 06/29/24 08:01 06/29/24 05:37 06/29/24 05:36 06/29/24 05:27 Range/Units POC Glucose 173 H 70-106 mg/dl White Blood Count 16.6 H 4.4-10.8 10^3/uL Red Blood Count 4.87 4.5-5.90 10^6/uL Hemoglobin 14.2 13.5-17.5 g/dL Hematocrit 39.6 L 41.0-53.0 % Mean Corpuscular Volume 81.3 80.0-100.0 fL Mean Corpuscular Hemoglobin 29.1 28.0-32.0 pg Mean Corpuscular Hemoglobin Concent 35.8 32.0-36.0 g/dL Red Cell Distribution Width 13.9 11.8-14.3 % Platelet Count 239 140-450 10^3/uL Mean Platelet Volume 8.6 6.9-10.8 fL Neutrophils (%) (Auto) 67.1 37.0-80.0 % Lymphocytes (%) (Auto) 17.3 10.0-50.0 % Monocytes (%) (Auto) 7.9 0.0-12.0 % Eosinophils (%) (Auto) 7.0 0.0-7.0 % Basophils (%) (Auto) 0.7 0.0-2.0 % Neutrophils # (Auto) 11.1 H 1.6-8.6 10 ^3/uL Lymphocytes # (Auto) 2.9 0.4-5.4 10 ^3/uL Monocytes # (Auto) 1.3 0-1.3 10 ^3/uL Eosinophils # (Auto) 1.2 H 0-0.8 10 ^3/uL Basophils # (Auto) 0.1 0-0.2 10 ^3/uL Nucleated Red Blood Cells 0.1 % Sodium Level 137 136-145 mmol/L Potassium Level 3.8 3.5-5.1 mmol/L Chloride Level 102 98-107 mmol/L Carbon Dioxide Level 28 20-31 mmol/L Anion Gap 7 5-15 Blood Urea Nitrogen 10 9-23 mg/dL Creatinine 1.16 0.700-1.30 mg/dL Glomerular Filtration Rate Calc 85 >90 mL/min BUN/Creatinine Ratio 8.6 L 10.0-20.0 Serum Glucose 168 H 74-106 mg/dL Calcium Level 9.7 8.7-10.4 mg/dL Hemoglobin A1c 8.8 H <5.7 % A1C Triglycerides Level 101 < 150 mg/dL Cholesterol Level 157 < 200 mg/dL LDL Cholesterol 96 < 100 mg/dL HDL Cholesterol 39 L 40-59 mg/dL Test 06/28/24 17:00 06/28/24 11:55 06/28/24 06:56 Range/Units Urine Color Yellow Yellow Urine Clarity Clear Clear Urine pH 7.0 5.0-9.0 Urine Specific [place] 1.025 1.001-1.035 Urine Protein Trace H Negative Urine Ketones Trace Negative Urine Blood Negative Negative /uL Urine Nitrite Negative Negative Urine Bilirubin Negative Negative Urine Urobilinogen 3 H Negative mg/dL Urine Leukocyte Esterase Trace Negative /uL Urine RBC 2 0 - 3 /hpf Urine WBC 15 0 - 3 /hpf Urine Squamous Epithelial Cells Few <5 /hpf Urine Bacteria Few H None Seen /hpf Urine Glucose 3+ H Normal mg/dL Troponin I High Sensitivity < 3 L </=54 ng/L B-Type Natriuretic Peptide 0.73 0-100 pg/mL Assessment Chest pain, rule out coronary ischemia Hypertension Hyperlipidemia Type 2 diabetes mellitus, uncontrolled (Hgb A1c 8.8%) Morbid obesity Plan/Recommendation We will continue with the following plan/recommendations (Dr. Angelo): Echocardiogram reveals EF 55% (no valve dysfunctions per report). Given the patient's clinical presentation, unremarkable twelve lead electrocardiogram, and negative troponin level, doubt ACS. The patient was taken to the stress lab in which the patient underwent a treadmill stress test. During the stress test, the patient was only able to reach 0606 minutes before asking to stop test due to chest pain. No significant ST changes noted during time of stress test. Patient's blood pressure noted to reach as high as 219/74. Patient sat down and slowly began to feel relief of chest pain. These results were discussed with ca rdiologist Dr. Angelo. Per MD, there is no further inpatient cardiac workup indicated at this time. The patient can follow up in the outpatient setting for further workup if deemed necessary. Thank you for allowing us to care for this patient. Please call with any questions or concerns. Critical care time spent: 42 minutes This medical document was created using an electronic medical record system with voice recognition software and computerized dictation system. Although this document has been carefully reviewed, there might still be some phonetic and typographical errors. Occasional wrong-word or ``sound-alike substitutions may have occurred due to the inherent limitations of voice recognition software. These areas are purely typographical due to imperfections of the software programs and do not reflect any compromise in the patient's medical care. Please read the chart carefully and recognize, using context, where these substitutions have occurred. Plan discussed with: Patient Date of Service: Jun 29, 2024 Billing Provider: CAPRICE JOLLEY Cardiology Common Codes: [id number] INP/OBS CARE (High) CAPRICE JOLLEY Jun 29, 2024 15:26
--- NOTE | 2024-06-29 17:28 | DVHCARD ---
Cardiology Stress Test [place] Treadmill Stress Test [place] Referring MD: RAMON Gillis Protocol: Robb (without cardiolite) Reason for referral: Chest Pain Target heart Rate:@85%: 158 Percent MPHR: 187 METS: 7.2 Resting Heart rate: 86 Resting Blood Pressure: 129/82 Exercise Heart Rate: 120 Exercise Blood Pressure: 219/74 Reason for Termination of Test: Chest Pain Baseline EKG: Normal sinus rhythm Stress EKG: Sinus tachycardia Functional Capacity: Mod. Decreased Heart Rate Response: Adequate Blood Pressure Response: Hypertensive Clinical response: Non-ischemic Arrhythmia?: No Cardiolite Injected?: No ST-T Changes: Non/Minimal Probability of Inducible [place]: Low Comments: Patient requested to stop at 0606 minutes due to chest pain Date of Service: Jun 29, 2024 Billing Provider: KENNEY MARTINEZ MD Cardiology Common Codes: PROCEDURE ONLY Treadmill w/o Cardiolite: [id number], INTERP, RPT CAPRICE GILLIS Jun 29, 2024 17:28
--- NOTE | 2024-06-29 23:12 | DVHINCON2 ---
Date Seen: Jun 29, 2024 Referring Physician MD Leonid Reason for Consultation Chest pain History of Present Illness This is a 34-year-old male with a PMH of hypertension, type 2 diabetes mellitus, and morbid obesity who presents to the ED with complaint of chest pain since yesterday. Patient reports he was watching TV when suddenly he is began to feel chest pain. Patient describes the pain as unprovoked, squeezing in nature, substernal, and nonradiating. Associated symptoms include shortness of breath. He denies any alleviating or precipitating factors. Patient reports that the pain lasted approximately 20 minutes. Initial twelve lead electrocardiogram reveals normal sinus rhythm without any significant ST segment changes Initial serial troponin levels have been negative. 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 He reports his next follow up with his lay health advocate at [facility] is on July. He denies any previous ischemic workup. Chest x-ray shows NAD. Patient was admitted to the hospital. I am asked to consult on this patient. Family History: Patient reports no known family medical history. Allergies: Coded Allergies: Penicillins (Verified Allergy, Severe, 11/17/21) Home Meds Reported Medications Glipizide (Glipizide) 10 Mg Tab, 1 TAB PO DAILY, #60 TAB 5 Refills 06/28/24 Current Medications Current Medications Medications (Trade) Dose Ordered Sig/Funmi Route PRN Reason Start Time Stop Time Status Last Admin Aspirin 81 mg DAILY PO 06/29/24 10:00 06/29/24 09:39 Clopidogrel Bisulfate (Plavix) 75 mg DAILY PO 06/29/24 10:00 06/29/24 17:41 DC 06/29/24 09:38 Atorvastatin Calcium (Lipitor) 40 mg HS PO 06/28/24 22:00 06/28/24 21:13 Metoprolol Tartrate (Lopressor Tablet) 25 mg Q12HR PO 06/28/24 22:00 06/29/24 09:40 Docusate Sodium (Colace Capsule) 100 mg DAILY PO 06/29/24 10:00 Lisinopril (Zestril Tablet) 10 mg DAILY PO 06/29/24 10:00 06/29/24 09:40 Review of Systems Constitutional: No symptom reported Ears, Nose, & Throat: No symptom reported Eyes: No symptom reported Neurological: No symptoms reported Pulmonary/Respiratory: No symptoms reported Cardiovascular: Chest pain Gastrointestinal: No symptom reported Genitourinary: No symptom reported Musculoskeletal: No symptom reported Skin: No symptom reported Psychiatric: No symptom reported Endocrine: No symptom reported Hematologic/Lymphatic: No symptom reported Vital Signs Vital Signs Date Time Temp Pulse Resp B/P (MAP) Pulse Ox O2 Delivery O2 Flow Rate FiO2 06/29/24 17:00 98.3 82 18 134/77 (96) 97 98.3 06/29/24 08:00 Room Air* 0 21 Physical Exam GENERAL: Awake, alert, oriented. Morbid obesity. LUNGS: Clear. CARDIOVASCULAR: Heart sounds are good. ABDOMEN: Soft. Labs/Diagnostic Data Labs Test 06/29/24 16:28 06/29/24 16:01 06/29/24 05:37 06/29/24 05:36 Range/Units POC Glucose 213 H 70-106 mg/dl Magnesium Level 2.1 1.6-2.6 mg/dL Thyroid Stimulating Hormone (TSH) 1.47 0.55-4.78 uIU/mL White Blood Count 16.6 H 4.4-10.8 10^3/uL Red Blood Count 4.87 4.5-5.90 10^6/uL Hemoglobin 14.2 13.5-17.5 g/dL Hematocrit 39.6 L 41.0-53.0 % Mean Corpuscular Volume 81.3 80.0-100.0 fL Mean Corpuscular Hemoglobin 29.1 28.0-32.0 pg Mean Corpuscular Hemoglobin Concent 35.8 32.0-36.0 g/dL Red Cell Distribution Width 13.9 11.8-14.3 % Platelet Count 239 140-450 10^3/uL Mean Platelet Volume 8.6 6.9-10.8 fL Neutrophils (%) (Auto) 67.1 37.0-80.0 % Lymphocytes (%) (Auto) 17.3 10.0-50.0 % Monocytes (%) (Auto) 7.9 0.0-12.0 % Eosinophils (%) (Auto) 7.0 0.0-7.0 % Basophils (%) (Auto) 0.7 0.0-2.0 % Neutrophils # (Auto) 11.1 H 1.6-8.6 10 ^3/uL Lymphocytes # (Auto) 2.9 0.4-5.4 10 ^3/uL Monocytes # (Auto) 1.3 0-1.3 10 ^3/uL Eosinophils # (Auto) 1.2 H 0-0.8 10 ^3/uL Basophils # (Auto) 0.1 0-0.2 10 ^3/uL Nucleated Red Blood Cells 0.1 % Sodium Level 137 136-145 mmol/L Potassium Level 3.8 3.5-5.1 mmol/L Chloride Level 102 98-107 mmol/L Carbon Dioxide Level 28 20-31 mmol/L Anion Gap 7 5-15 Blood Urea Nitrogen 10 9-23 mg/dL Creatinine 1.16 0.700-1.30 mg/dL Glomerular Filtration Rate Calc 85 >90 mL/min BUN/Creatinine Ratio 8.6 L 10.0-20.0 Serum Glucose 168 H 74-106 mg/dL Calcium Level 9.7 8.7-10.4 mg/dL Hemoglobin A1c 8.8 H <5.7 % A1C Test 06/29/24 05:27 06/28/24 17:00 06/28/24 11:55 06/28/24 06:56 Range/Units Triglycerides Level 101 < 150 mg/dL Cholesterol Level 157 < 200 mg/dL LDL Cholesterol 96 < 100 mg/dL HDL Cholesterol 39 L 40-59 mg/dL Urine Color Yellow Yellow Urine Clarity Clear Clear Urine pH 7.0 5.0-9.0 Urine Specific [place] 1.025 1.001-1.035 Urine Protein Trace H Negative Urine Ketones Trace Negative Urine Blood Negative Negative /uL Urine Nitrite Negative Negative Urine Bilirubin Negative Negative Urine Urobilinogen 3 H Negative mg/dL Urine Leukocyte Esterase Trace Negative /uL Urine RBC 2 0 - 3 /hpf Urine WBC 15 0 - 3 /hpf Urine Squamous Epithelial Cells Few <5 /hpf Urine Bacteria Few H None Seen /hpf Urine Glucose 3+ H Normal mg/dL Troponin I High Sensitivity < 3 L </=54 ng/L B-Type Natriuretic Peptide 0.73 0-100 pg/mL Assessment Chest pain, rule out coronary ischemia. Hypertension. Hyperlipidemia. Type 2 diabetes mellitus, uncontrolled (Hgb A1c 8.8%). Morbid obesity. Plan/Recommendation I agree with your ongoing assessment and care of plan. Patient has been seen by Tram Gillis NP on my behalf, her and I discussed the plan with the patient. Echocardiogram reveals EF 55% (no valve dysfunctions per report). Given the patient's clinical presentation, unremarkable twelve lead electrocardiogram, and negative troponin level, doubt ACS. The patient was taken to the stress lab in which the patient underwent a treadmill stress test. Additional plan as per the hospital course. Plan discussed with: Patient Date of Service: Jun 29, 2024 Billing Provider: JONATHAN HAYS MD Cardiology Common Codes: [id number] INP/OBS CARE (High) JONATHAN HAYS MD Jun 29, 2024 18:29
[2024-06-30 01:00] VITALS: BP 103/52; PULSE 80; RESP 18; TEMP 97.8; O2SAT 96
[2024-06-30 05:00] VITALS: BP 118/68; PULSE 77; RESP 18; TEMP 98.6; O2SAT 95
[2024-06-30 09:00] VITALS: BP 126/66; PULSE 80; RESP 15; TEMP 97.3; O2SAT 99
--- NOTE | 2024-06-30 12:13 | DVHPN2 ---
Reviewed: Care Plan, H&P, Labs, Medications, Previous Orders, Radiology Changes from previous H/P or p: No Changes Eyes: No Pain, No Vision change, No Conjunctivae inflammation, No Eyelid inflammation, No Other, No Redness ENT: No Ear pain, No Ear discharge, No Nose pain, No Nose discharge, No Nose congestion, No Mouth pain, No Mouth swelling, No Throat pain, No Throat swelling, No Other Cardiovascular: Chest Pain, Palpitations; No Orthopnea, No Paroxysmal Noc. Dyspnea, No Edema, No Lt Headedness, No Other Respiratory: No Cough, No Dry; Shortness of breath; No SOB with excertion, No Wheezing, No Hemoptysis, No Pleuritic Pain, No Sputum, No Other Gastrointestinal: No Nausea, No Vomiting, No Abdominal Pain, No Diarrhea, No Constipation, No Melena, No Hematochezia, No Other Genitourinary: No Dysuria, No Frequency, No Incontinence, No Hematuria, No Retention, No Other Musculoskeletal: No other, No neck pain, No shoulder pain, No arm pain, No back pain, No hand pain, No leg pain, No foot pain Skin: No Rash, No Lesions, No Jaundice, No Bruising, No Other Objective Vitals Vital Signs Date Time Temp Pulse Resp B/P (MAP) Pulse Ox O2 Delivery O2 Flow Rate FiO2 06/30/24 10:39 138/70 06/30/24 10:38 78 06/30/24 09:00 97.3 15 99 97.3 06/29/24 20:00 Room Air* 0 21 Intake/Output Intake and Output 06/30/24 07:00 Intake Total 2150 ml Output Total 1300 ml Balance 850 ml Intake Oral 2100 ml IV Total 50 ml Output Urine Total 1300 ml # Voids 4 # Bowel Movements 3 Medications Current Medications Medications Dose Ordered Sig/Funmi Route Start Time Stop Time Status Last Admin Dose Admin Aspirin 81 mg DAILY PO 06/29/24 10:00 06/30/24 10:37 81 MG Atorvastatin Calcium 40 mg HS PO 06/28/24 22:00 06/29/24 21:52 40 MG Metoprolol Tartrate 25 mg Q12HR PO 06/28/24 22:00 06/30/24 10:38 25 MG Acetaminophen 650 mg Q6HP PRN PO 06/28/24 11:00 Zolpidem Tartrate 5 mg QHSP PRN PO 06/28/24 11:00 Lorazepam 0.5 mg Q6HP PRN PO 06/28/24 11:00 Docusate Sodium 100 mg DAILY PO 06/29/24 10:00 Ondansetron HCl 4 mg Q4HP PRN IV 06/28/24 11:00 Lisinopril 10 mg DAILY PO 06/29/24 10:00 06/30/24 10:39 10 MG Nitroglycerin 0.4 mg Q5MINP PRN SL 06/28/24 11:00 Morphine Sulfate 2 mg Q30M PRN IV 06/28/24 11:00 Diagnostic Test (Pha) 1 strip IQ4HR 06/28/24 12:00 06/30/24 04:00 1 STRIP Insulin Human Regular IQ4HR SC 06/28/24 12:00 06/29/24 12:25 9 UNITS Dextrose 50 ml UD PRN IV 06/28/24 11:00 Ceftriaxone Sodium 50 ml @ 100 mls/hr DAILY IV 06/28/24 11:30 06/30/24 10:37 100 MLS/HR Laboratory Results Laboratory Tests 06/29/24 05:37 Chemistry Test 06/29/24 16:01 Magnesium Level 2.1 mg/dL (1.6-2.6) HgA1c, TSH Test 06/29/24 16:01 Thyroid Stimulating Hormone (TSH) 1.47 uIU/mL (0.55-4.78) Urinalysis Test 06/28/24 17:00 Urine Color Yellow (Yellow) Urine Clarity Clear (Clear) Urine pH 7.0 (5.0-9.0) Urine Specific [place] 1.025 (1.001-1.035) Urine Protein Trace (Negative) H Urine Ketones Trace (Negative) Urine Blood Negative /uL (Negative) Urine Nitrite Negative (Negative) Urine Bilirubin Negative (Negative) Urine Urobilinogen 3 mg/dL (Negative) H Urine Leukocyte Esterase Trace /uL (Negative) Urine RBC 2 /hpf (0 - 3) Urine WBC 15 /hpf (0 - 3) Urine Squamous Epithelial Cells Few /hpf (<5) Urine Bacteria Few /hpf (None Seen) H Urine Glucose 3+ mg/dL (Normal) H Labs and/or images reviewed: Labs reviewed by me, Image(s) reviewed by me Assessment/Plan Assessment/Plan Chest pain rule out coronary artery disease: Troponin negative x3 Treatment per ACS protocol cardiology consult for Dr.Al Choe Uncontrolled Diabetes: Insulin sliding scale Acute urinary tract infection: Urine cultures Rocephin Morbid obesity BMI of 41 Patient was unable to complete the Cardiolite stress test because of the chest pain Time spent 45 minutes Patient wants to go home We will wait for cardiology clearance Plan discussed with: Patient My Orders Orders - JAYME AU MD Procedure Category Date Status Time * Cardiology Consult CONS 06/29/24 Transmitted 13:09 Stress Test Routine NM 06/29/24 Taken Date of Service: Jun 30, 2024 Billing Provider: JAYME AU MD Common Visit Codes: [id number] INP/OBS CARE(HIGH) JAYME AU MD Jun 30, 2024 12:13
[2024-06-30 13:06] VITALS: BP 130/87; PULSE 75; RESP 18; TEMP 97.4; O2SAT 98
[2024-06-30 16:32] VITALS: BP 121/74; PULSE 77; RESP 17; TEMP 98.2; O2SAT 97
[2024-06-30 16:33] VITALS: BP 121/74; PULSE 77; RESP 17; TEMP 98.2; O2SAT 97
--- NOTE | 2024-06-30 20:37 | DVHPN2 ---
Progress Note - Dictate Date Seen: Jun 30, 2024 Medical Necessity Reason Pt with a Central, PICC or Fol: No Subjective Patient was seen and evaluated in follow up. Patient is c/o chest discomfort. Echocardiogram showed normal left ventricular size and dimension. Normal left ventricular systolic function estimated ejection fraction 55%. There is a grade 1 diastolic dysfunction. vital signs Vital Sign Date Time Temp Pulse Resp B/P (MAP) Pulse Ox O2 Delivery O2 Flow Rate FiO2 06/30/24 16:33 98.2 77 17 121/74 (90) 97 98.2 06/29/24 20:00 Room Air* 0 21 Total Intake and Output 06/29/24 06/29/24 06/30/24 15:00 23:00 07:00 Intake Total 50 ml 1200 ml 900 ml Output Total 1300 ml Balance 50 ml -100 ml 900 ml medications GENERAL: Awake, alert, oriented. Morbid obesity. LUNGS: Clear. CARDIOVASCULAR: Heart sounds are good. ABDOMEN: Soft. laboratory and microbiology Laboratory Tests 06/29/24 05:37 Test 06/29/24 05:37 Range/Units Serum Glucose 168 H 74-106 mg/dL Problem List Chest pain, rule out coronary ischemia. Hypertension. Hyperlipidemia. Type 2 diabetes mellitus, uncontrolled (Hgb A1c 8.8%). Morbid obesity. Assessment/Plan Continued all current supportive medical care. Lisinopril. IV antibiotics as ordered. Aspirin, Lipitor, Plavix, Metoprolol. Morphine for pain management. Additional plan as per the hospital course. Plan discussed with: Patient JONATHAN HAYS MD Jun 30, 2024 17:42
--- NOTE | 2024-07-01 08:04 | DVHDS2 ---
Discharge Summary Date of Admission Jun 28, 2024 at 22:53 Date of Discharge: Jun 30, 2024 Admitting Diagnosis Chest pain Wounds: None Labs/Diagnostic Data: Laboratory Results Test 06/30/24 11:52 06/29/24 16:01 06/29/24 05:37 06/29/24 05:36 POC Glucose 186 mg/dl (70-106) Magnesium Level 2.1 mg/dL (1.6-2.6) Thyroid Stimulating Hormone (TSH) 1.47 uIU/mL (0.55-4.78) White Blood Count 16.6 10^3/uL (4.4-10.8) Red Blood Count 4.87 10^6/uL (4.5-5.90) Hemoglobin 14.2 g/dL (13.5-17.5) Hematocrit 39.6 % (41.0-53.0) Mean Corpuscular Volume 81.3 fL (80.0-100.0) Mean Corpuscular Hemoglobin 29.1 pg (28.0-32.0) Mean Corpuscular Hemoglobin Concent 35.8 g/dL (32.0-36.0) Red Cell Distribution Width 13.9 % (11.8-14.3) Platelet Count 239 10^3/uL (140-450) Mean Platelet Volume 8.6 fL (6.9-10.8) Neutrophils (%) (Auto) 67.1 % (37.0-80.0) Lymphocytes (%) (Auto) 17.3 % (10.0-50.0) Monocytes (%) (Auto) 7.9 % (0.0-12.0) Eosinophils (%) (Auto) 7.0 % (0.0-7.0) Basophils (%) (Auto) 0.7 % (0.0-2.0) Neutrophils # (Auto) 11.1 10 ^3/uL (1.6-8.6) Lymphocytes # (Auto) 2.9 10 ^3/uL (0.4-5.4) Monocytes # (Auto) 1.3 10 ^3/uL (0-1.3) Eosinophils # (Auto) 1.2 10 ^3/uL (0-0.8) Basophils # (Auto) 0.1 10 ^3/uL (0-0.2) Nucleated Red Blood Cells 0.1 % Sodium Level 137 mmol/L (136-145) Potassium Level 3.8 mmol/L (3.5-5.1) Chloride Level 102 mmol/L (98-107) Carbon Dioxide Level 28 mmol/L (20-31) Anion Gap 7 (5-15) Blood Urea Nitrogen 10 mg/dL (9-23) Creatinine 1.16 mg/dL (0.700-1.30) Glomerular Filtration Rate Calc 85 mL/min (>90) BUN/Creatinine Ratio 8.6 (10.0-20.0) Serum Glucose 168 mg/dL (74-106) Calcium Level 9.7 mg/dL (8.7-10.4) Hemoglobin A1c 8.8 % A1C (<5.7) Test 06/29/24 05:27 06/28/24 17:00 06/28/24 11:55 06/28/24 06:56 Triglycerides Level 101 mg/dL (< 150) Cholesterol Level 157 mg/dL (< 200) LDL Cholesterol 96 mg/dL (< 100) HDL Cholesterol 39 mg/dL (40-59) Urine Color Yellow (Yellow) Urine Clarity Clear (Clear) Urine pH 7.0 (5.0-9.0) Urine Specific [place] 1.025 (1.001-1.035) Urine Protein Trace (Negative) Urine Ketones Trace (Negative) Urine Blood Negative /uL (Negative) Urine Nitrite Negative (Negative) Urine Bilirubin Negative (Negative) Urine Urobilinogen 3 mg/dL (Negative) Urine Leukocyte Esterase Trace /uL (Negative) Urine RBC 2 /hpf (0 - 3) Urine WBC 15 /hpf (0 - 3) Urine Squamous Epithelial Cells Few /hpf (<5) Urine Bacteria Few /hpf (None Seen) Urine Glucose 3+ mg/dL (Normal) Troponin I High Sensitivity < 3 ng/L (</=54) B-Type Natriuretic Peptide 0.73 pg/mL (0-100) Other Laboratory Tests 06/29/24 05:37 Brief Hx & Hospital Course: 34-year-old male with a history of diabetes morbidly obese BMI 41 came in complaining of chest pain troponin negative x3 treated per ACS protocol seen by Cardiology Dr.Al Choe and Dr. Mehrdad Angelo. Treated per ACS protocol. Patient also had urinary tract infection treated with the Rocephin. The patient underwent Cardiolite stress test but it was stopped before completion because of chest pain. Patient was awaiting further evaluation by the checker loader meanwhile patient left AMA. Consequences of leaving AMA including possible explained to the patient and he verbalized understanding. General condition satisfactory at the time of leaving AMA per nurse's notes Consults/Reason for consult Cardiology Dr. Diallo Cardiology Dr. Angelo Operations or Procedures Cardiolite stress test Condition at Discharge: Fair Final Diagnosis/Problems List Chest pain rule out coronary artery disease: Troponin negative x3 Treatment per ACS protocol cardiology consult for Dr.Al Choe Uncontrolled Diabetes: Insulin sliding scale Acute urinary tract infection: Urine cultures Rocephin Morbid obesity BMI of 41 Patient was unable to complete the Cardiolite stress test because of the chest pain Discharge Disposition: AMA Discharge Instruct/Medications Diet comment: Not applicable Patient left AMA Activity comment: Not applicable Patient left AMA Follow Up/Referral: Not applicable Patient left a Medications: Not applicable Patient left AMA 35 (Time taken for discharge summary 35 minutes) Discharge Statement: "Patient was advised to return to the ER or call 911 if any headaches, dizziness, shortness of breath, chest pain, abdominal pain, bleeding, fevers, or worsening of medical condition. Patient was counseled about treatment plan, medications, possible side effects, patientverbalized understanding. All questions were answered to the best of my ability. This discharge took greater then 30 minutes in planning, reviewing documentation, counseling the patient, and discussing with other team members." ASSESSMENT ASSESSMENT Hospital Course Left AMA Assessment Date of Service: Jul 01, 2024 Billing Provider: JAYME AU MD Common Visit Codes: [id number] DISCH DAY >30min JAYME AU MD Jul 01, 2024 08:04
== END 2024-06-30 17:00 | disposition left against medical advice (07) | DRG 720 ==
LOC: EDBD 06:37 → ER 06:37 → OVERFLOW 10:48 → UNDOADMIN 10:48 → TELE 22:53 → TELE-WESTW 23:49
PROVIDERS: ADMIT Hospitalist; ATTEND Family Medicine
DX: A41.9 Sepsis, unspecified organism (principal); N17.0 Acute kidney failure with tubular necrosis; D72.829 Elevated white blood cell count, unspecified; E11.65 Type 2 diabetes mellitus with hyperglycemia; E78.5 Hyperlipidemia, unspecified; E66.01 Morbid (severe) obesity due to excess calories; N30.00 Acute cystitis without hematuria; I25.10 Atherosclerotic heart disease of native coronary artery without angina pectoris; I10 Essential (primary) hypertension; Z53.29 Procedure and treatment not carried out because of patient's decision for other reasons; Z68.41 Body mass index [BMI] 40.0-44.9, adult; Z88.0 Allergy status to penicillin; I25.9 Chronic ischemic heart disease, unspecified
CPT/HCPCS: 36415; 71046; 80048; 80061; 81001; 82962; 83036; 83735; 83880; 84443; 84484; 85025; 93005; 93017; 93306; G0378; J1815

== ENCOUNTER 2024-12-09 16:02 | Inpatient (IN) | payer MEDICAID ==
[~2024-12-09] VITALS: Ht 190.5 cm; Wt 150.0 kg
[~2024-12-09 16:02] MED LIST changes: -CIPR-173 PO; +GLIP10TA9 PO
--- NOTE | 2024-12-09 16:31 | ED.PDOC ---
History of Present Illness HPI Comments 34F presents to the ER w/ prior MHx of Varices, Cirrhosis in the liver, liver Cancer, insomnia, DM;SHx of 08/11 Cholecystectomy removed which was 3 years ago, and the c/c of Cough w/ blood. Pt reports on coughing up blood which started today. Social Hx of Marijuana use, but denies alcohol use and tobacco use. Denies chills, fever, N/V/D, SOB, CP. No other associated symptoms, modifiers, recent injuries or sick contacts present at this time. Chief Complaint: Cough Time Seen by MD: 16:20 Primary Care Provider: Kishore Ambrosio Notes: Nurses Notes, Medications, Allergies Allergies: Coded Allergies: Penicillins (Verified Allergy, Severe, 11/17/21) Home Meds Reported Medications Glipizide (Glipizide) 10 Mg Tab, 1 TAB PO DAILY, #60 TAB 5 Refills 06/28/24 Information Source: Patient, Significant Other Mode of Arrival: Ambulatory Severity: Moderate Timing: Hours Duration: Since onset, Hours Prehospital treatment: None Past Medical History PAST MEDICAL HISTORY: Cancer, DM Past Medical History (Other): Varices, Cirrhosis-Liver, liver Cancer, Insomnia Surgical History: Cholecystectomy (08/11 removed) Family History Family History: Reviewed,noncontributory to illness, Unknown Social History Smoker: Non-Smoker Alcohol: Denies ETOH Use Drugs: Denies Drug Use Lives In: Home Constitutional: denies: chills, diaphoresis, fatigue, fever, malaise, sweats, weakness, others EENTM: denies: blurred vision, double vision, ear bleeding, ear discharge, ear drainage, ear pain, ear ringing, eye pain, eye redness, hearing loss, mouth pain, mouth swelling, nasal discharge, nose bleeding, nose congestion, nose pain, photophobia, tearing, throat pain, throat swelling, voice changes, others Respiratory: reports: cough; denies: hemoptysis, orthopnea, SOB at rest, shortness of breath, SOB with excertion, stridor, wheezing, others Cardiovascular: denies: chest pain, dizzy spells, diaphoresis, Dyspnea on exertion, edema, irregular heart beat, left arm pain, lightheadedness, palpitations, PND, syncope, others Gastrointestinal: denies: abdomen distended, abdominal pain, blood streaked bowels, constipated, diarrhea, dysphagia, difficulty swallowing, hematemesis, melena, nausea, poor appetite, poor fluid intake, rectal bleeding, rectal pain, vomiting, others Genitourinary: denies: burning, dysuria, flank pain, frequency, hematuria, incontinence, penile discharge, penile sore, pain, testicle pain, testicle swelling, urgency, others Neurological: denies: dizziness, fainting, headache, left sided numbness, left sided weakness, numbness, paresthesia, pre-existing deficit, right sided numbness, right sided weakness, seizure, speech problems, tingling, tremors, weakness, others Musculoskeletal: denies: back pain, gout, joint pain, joint swelling, muscle pain, muscle stiffness, neck pain, others Integumetry: denies: bruises, change in color, change in hair/nails, dryness, laceration, lesions, lumps, rash, wounds, others Allergic/Immunocompromised: denies: Difficulty Healing, Frequent Infections, Hives, Itching, others Hematologic/Lymphatic: denies: anemia, blood clots, easy bleeding, easy bruising, swollen glands, others Endocrine: denies: excessive hunger, excessive sweating, excessive thirst, excessive urination, flushing, intolerance to cold, intolerance to heat, unexplained weight gain, unexplained weight loss, others Psychiatric: denies: anxiety, bipolar disorder, depression, hopeless, panic disorder, schizophrenia, sleepless, suicidal, others All Other Systems: Reviewed and Negative Physical Exam General Appearance: No Apparent Distress, Normal HEENT: Normal ENT Inspection, Pharynx Normal, TMs Normal Neck: Full Range of Motion, Non-Tender, Normal, Normal Inspection Respiratory: Chest Non-Tender, Lungs Clear, No Accessory Muscle Use, No Respiratory Distress, Normal Breath Sounds Cardiovascular: No Edema, No JVD, No Murmur, No Gallop, Normal Peripheral Pulses, Regular Rate/Rhythm Breast Exam: Deferred Gastrointestinal: No Organomegaly, Non Tender, No Pulsatile Mass, Normal Bowel Sounds, Soft Genitalia: Deferred Pelvic: Deferred Rectal: Deferred Extremities: No calf tenderness, Normal capillary refill, Normal inspection, Normal range of motion, Non-tender, No pedal edema Musculoskeletal : Apperance: Normal Neurologic: Alert, mental health advanced practice nurse II-XII nml as Tested, No Motor Deficits, Normal Affect, Normal Mood, No Sensory Deficits Cerebellar Function: Normal Reflexes: Normal Skin: Dry, Normal Color, Warm Lymphatic: No Adenopathy Was a procedure done? Was a procedure done?: No Differential Dx Considerations may include: esophageal varices, UGIB, LGIB, cirrhosis, hepatic encephalopathy. hyperglycemia, DKA, HHS, sepsis X-Ray, Labs, Meds, VS Vital Signs Date Time Temp Pulse Resp B/P (MAP) Pulse Ox O2 Delivery O2 Flow Rate FiO2 12/09/24 20:28 98.5 83 16 135/82 (99) 96 98.5 12/09/24 17:50 85 100 Room Air* 0 21 12/09/24 17:50 98.5 85 17 145/93 (110) 98 98.5 12/09/24 16:45 18 97 Room Air* 0 21 12/09/24 16:15 97.0 82 18 149/97 (114) 97 97.0 Lab Test 12/09/24 16:47 Range/Units White Blood Count 10.8 4.4-10.8 10^3/uL Red Blood Count 5.51 4.5-5.90 10^6/uL Hemoglobin 15.9 13.5-17.5 g/dL Hematocrit 45.3 41.0-53.0 % Mean Corpuscular Volume 82.3 80.0-100.0 fL Mean Corpuscular Hemoglobin 28.9 28.0-32.0 pg Mean Corpuscular Hemoglobin Concent 35.2 32.0-36.0 g/dL Red Cell Distribution Width 13.8 11.8-14.3 % Platelet Count 280 140-450 10^3/uL Mean Platelet Volume 9.1 6.9-10.8 fL Neutrophils (%) (Auto) 57.6 37.0-80.0 % Lymphocytes (%) (Auto) 30.8 10.0-50.0 % Monocytes (%) (Auto) 6.8 0.0-12.0 % Eosinophils (%) (Auto) 3.7 0.0-7.0 % Basophils (%) (Auto) 1.1 0.0-2.0 % Neutrophils # (Auto) 6.2 1.6-8.6 10 ^3/uL Lymphocytes # (Auto) 3.3 0.4-5.4 10 ^3/uL Monocytes # (Auto) 0.7 0-1.3 10 ^3/uL Eosinophils # (Auto) 0.4 0-0.8 10 ^3/uL Basophils # (Auto) 0.1 0-0.2 10 ^3/uL Nucleated Red Blood Cells 0.4 % Prothrombin Time 10.8 9.3-11.8 sec Prothrombin Time INR 1.02 0.9-1.15 Sodium Level 134 L 136-145 mmol/L Potassium Level 4.2 3.5-5.1 mmol/L Chloride Level 99 98-107 mmol/L Carbon Dioxide Level 27 20-31 mmol/L Anion Gap 8 5-15 Blood Urea Nitrogen 11 9-23 mg/dL Creatinine 1.25 0.700-1.30 mg/dL Glomerular Filtration Rate Calc 78 >90 mL/min BUN/Creatinine Ratio 8.8 L 10.0-20.0 Serum Glucose 466 *H 74-106 mg/dL Lactic Acid Level 1.7 0.4-2.0 mmol/L Calcium Level 10.5 H 8.7-10.4 mg/dL Total Bilirubin 0.5 0.2-1.0 mg/dL Direct Bilirubin 0.2 <0.3 mg/dL Aspartate Amino Transferase (AST) 33 13-40 U/L Alanine Aminotransferase (ALT) 54 H 7-40 U/L Alkaline Phosphatase 146 H 46-116 U/L Total Protein 8.2 5.7-8.2 g/dL Albumin 4.6 3.2-4.8 g/dL Lipase 112 H 12-53 U/L Beta-Hydroxybutyric Acid 0.132 < 0.4 mmol/L Current Medications Medications (Trade) Dose Ordered Sig/Funmi Route Start Time Stop Time Status Last Admin Pantoprazole Sodium (Protonix) 40 mg ONCE ONCE IV 12/09/24 16:30 12/09/24 16:31 DC 12/09/24 19:48 Sodium Chloride 1,000 ml @ 1,000 mls/hr Q1H ONCE IV 12/09/24 16:30 12/09/24 17:29 DC 12/09/24 19:46 Ondansetron HCl (Zofran) 4 mg O ONCE IV 12/09/24 16:30 12/09/24 16:31 DC 12/09/24 19:48 X-Ray, Labs, Meds, VS Comment 34 yo male w history of esophageal varices, cirrhosis, liver cancer here with c/o vomiting blood. Concern for ruptured esophageal varices. Patient given protonix, fluids, and will be admitted to medicine team for consideration of EGD with GI for possible banding. Images Reviewed?: Images reviewed and evaluated by me Time of 1ST Reevaluation: 16:50 Reevaluation 1ST: Unchanged Time of 2ND Reevaluation: 21:20 Reevaluation 2ND: Improved Patient Education/Counseling: Diagnosis, Treatment, Prognosis Family Education/Counseling: Diagnosis, Treatment, Prognosis Departure 1 Departure Time of Disposition: 21:20 Impression: Primary Impression: UGIB (upper gastrointestinal bleed) Additional Impressions: History of cirrhosis History of esophageal varices History of liver cancer Hyperglycemia Disposition: 02 SHORT TERM HOSPITAL Admit to: Tele Condition: Guarded Critical Care Note Critical Care Time?: Yes (35 min-critical care time only) Stability Stability form required: No Heart Score Heart Score: Heart Score Response (Comments) Value History N/A 0 EKG N/A 0 Age N/A 0 Risk Factors N/A 0 Troponin N/A 0 Total 0 I personally scribed for FREDERICK MARTINEZ MD ([email or web address]) on 12/09/24 at 16:31. Electronically submitted by Meek Aleman ([email or web address]). FREDERICK MARTINEZ MD December 09, 2024 16:31
[2024-12-09 16:59] LABS: Basophils # (auto) 0.1 10 ^3/uL (0-0.2); Basophils % (auto) 1.1 % (0.0-2.0); Eosinophils # (auto) 0.4 10 ^3/uL (0-0.8); Eosinophils % (auto) 3.7 % (0.0-7.0); Hematocrit 45.3 % (41.0-53.0); Hemoglobin 15.9 g/dL (13.5-17.5); Lymphocytes # (auto) 3.3 10 ^3/uL (0.4-5.4); Lymphocytes % (auto) 30.8 % (10.0-50.0); Mean Corpuscular Hemoglobin 28.9 pg (28.0-32.0); Mean Corpuscular Hgb Conc. 35.2 g/dL (32.0-36.0); Mean Corpuscular Volume 82.3 fL (80.0-100.0); Monocytes # (auto) 0.7 10 ^3/uL (0-1.3); Monocytes % (auto) 6.8 % (0.0-12.0); Neutrophils # (auto) 6.2 10 ^3/uL (1.6-8.6); Neutrophils % (auto) 57.6 % (37.0-80.0); Nucleated Red Blood Cells % 0.4 %; Platelet Count (auto) 280 10^3/uL (140-450); Red Blood Cells 5.51 10^6/uL (4.5-5.90); Red Cell Distribution Width 13.8 % (11.8-14.3); White Blood Cell 10.8 10^3/uL (4.4-10.8)
[2024-12-09 17:16] LABS: Albumin 4.6 g/dL (3.2-4.8); Anion Gap 8 (5-15); Aspartate Aminotransferase 33 U/L (13-40); BUN/Creatinine Ratio 8.8 (10.0-20.0); Bilirubin, Direct 0.2 mg/dL (<0.3); Bilirubin, Total 0.5 mg/dL (0.2-1.0); Blood Urea Nitrogen 11 mg/dL (9-23); Carbon Dioxide 27 mmol/L (20-31); Chloride 99 mmol/L (98-107); Potassium 4.2 mmol/L (3.5-5.1)
[2024-12-09 17:19] LABS: Alanine Aminotransferase 54 U/L (7-40); Alkaline Phosphatase 146 U/L (46-116); Calcium 10.5 mg/dL (8.7-10.4); Sodium 134 mmol/L (136-145); Total Protein 8.2 g/dL (5.7-8.2)
[2024-12-09 17:20] LABS: Glucose 466 mg/dL (74-106)
[2024-12-09 17:27] LABS: INR 1.02 (0.9-1.15); Prothrombin Time 10.8 sec (9.3-11.8)
[2024-12-09 17:50] VITALS: PULSE 85; O2SAT 100
--- NOTE | 2024-12-09 18:19 | DVH ---
CHEST RADIOGRAPH Indication: coughing blood Technique: Single frontal view of the chest was obtained Comparison: 06/28/2024 FINDINGS: Lines and Tubes: None Lungs and Pleura: No focal consolidation. No effusion. No pneumothorax. Cardiomediastinal contours: Unremarkable Bones: No acute osseous abnormality. IMPRESSION: 1. No acute cardiopulmonary disease.
[2024-12-09] MEDS: SODIUM CHLORIDE 0.9% 1,000 ML IV ONE (19:46)
[2024-12-09] MEDS: PANTOPRAZOLE 40 MG/10 ML VIAL INJ IV ONE (19:48)
[2024-12-09] MEDS: ONDANSETRON HCL 4 MG/2 ML VIAL IV ONE (19:48)
[2024-12-09] MEDS ORDERED: ONDANSETRON HCL 4 MG/2 ML VIAL IV PRN (20:45)
[2024-12-09] MEDS ORDERED: DEXTROSE (50%) 50ML SYRG IV PRN (20:45)
[2024-12-09 21:31] VITALS: PULSE 74; RESP 18; O2SAT 100
[2024-12-09 21:34] VITALS: BP 140/80; PULSE 80; RESP 18; TEMP 97.8; O2SAT 95
[2024-12-10] VITALS (7 sets, daily range): BP systolic 124–148; BP diastolic 54–95; PULSE 67–85; RESP 17–20; TEMP 97.4–98.2; O2SAT 93–98
[2024-12-10] MEDS: ACCU-CHEK COMFORT CURVE STRIP VI SCH ×2 (00:16→17:00)
[2024-12-10] MEDS: InsuLIN REG 1unit/0.01ml Soln (100units/ml) SC SCH ×3 (00:18→22:00)
--- NOTE | 2024-12-10 00:44 | DVHHP2 ---
History of Present Illness Reason for Visit: Coughing blood History of Present Illness 34-year-old male presents for evaluation of hemoptysis. Patient reports a one day history of having a cough with dark blood. He denies hematemesis or melena. He reports having multiple episodes of of bloody sputum today. Denies shortness or breath. No chest pain. Past Medical History Cancer, diabetes mellitus, liver cirrhosis Past Surgical History Liver cancer removed Family History Noncontributory Smoke: No ALCOHOL: none Drugs: None Lives: with Family Review of Systems Review of Systems Review of systems are currently negative otherwise addressed in HPI. Allergies: Coded Allergies: Penicillins (Verified Allergy, Severe, 11/17/21) Medications Current Medications Medications Dose Ordered Sig/Funmi Route Start Time Stop Time Status Last Admin Dose Admin Pantoprazole Sodium 40 mg DAILY@0600 PO 12/10/24 06:00 Diagnostic Test (Pha) 1 strip IQ4HR 12/10/24 00:00 12/10/24 00:16 1 STRIP Insulin Human Regular IQ4HR SC 12/10/24 00:00 12/10/24 00:18 8 UNITS Dextrose 50 ml UD PRN IV 12/09/24 20:45 Ondansetron HCl 4 mg Q4HP PRN IV 12/09/24 20:45 Exam Vital Signs Vital Signs Date Time Temp Pulse Resp B/P (MAP) Pulse Ox O2 Delivery O2 Flow Rate FiO2 12/09/24 21:34 97.8 80 18 140/80 (100) 95 97.8 12/09/24 21:31 Room Air* 0 21 Exam Gen: 34-year-old male in no apparent distress, morbidly obese Skin: Warm, dry, normal color and texture, no rash. HEENT: Normocephalic atraumatic, mucous membranes moist and pink. Neck: Cervical and supraclavicular nodes normal without enlargement, trachea is midline, thyroid gland is normal without masses. Pulmonary: Clear to auscultation and percussion bilaterally. Cardiac: Regular rate and rhythm. No murmur Abdomen: Soft, nontender, nondistended, bowel sounds present all 4 quadrants, no guarding, no rigidity, no organomegaly. Extremities: No cyanosis, clubbing, no edema Neuro: Cranial nerves II through XII grossly intact, normal affect and speech, no focal motor deficits. Labs/Xrays ORDERING PHYSICIAN: FREDERICK MARTINEZ MD PROCEDURE(s): CXRP - CHEST PORTABLE REASON: coughing blood ORDER NUMBER(s): [id number], ACCESSION NUMBER(s): [id number] CHEST RADIOGRAPH Indication: coughing blood Technique: Single frontal view of the chest was obtained Comparison: 06/28/2024 FINDINGS: Lines and Tubes: None Lungs and Pleura: No focal consolidation. No effusion. No pneumothorax. Cardiomediastinal contours: Unremarkable Bones: No acute osseous abnormality. IMPRESSION: 1. No acute cardiopulmonary disease. ATED BY: ANEUDY JACKSON MD Labs Test 12/09/24 16:47 Range/Units White Blood Count 10.8 4.4-10.8 10^3/uL Red Blood Count 5.51 4.5-5.90 10^6/uL Hemoglobin 15.9 13.5-17.5 g/dL Hematocrit 45.3 41.0-53.0 % Mean Corpuscular Volume 82.3 80.0-100.0 fL Mean Corpuscular Hemoglobin 28.9 28.0-32.0 pg Mean Corpuscular Hemoglobin Concent 35.2 32.0-36.0 g/dL Red Cell Distribution Width 13.8 11.8-14.3 % Platelet Count 280 140-450 10^3/uL Mean Platelet Volume 9.1 6.9-10.8 fL Neutrophils (%) (Auto) 57.6 37.0-80.0 % Lymphocytes (%) (Auto) 30.8 10.0-50.0 % Monocytes (%) (Auto) 6.8 0.0-12.0 % Eosinophils (%) (Auto) 3.7 0.0-7.0 % Basophils (%) (Auto) 1.1 0.0-2.0 % Neutrophils # (Auto) 6.2 1.6-8.6 10 ^3/uL Lymphocytes # (Auto) 3.3 0.4-5.4 10 ^3/uL Monocytes # (Auto) 0.7 0-1.3 10 ^3/uL Eosinophils # (Auto) 0.4 0-0.8 10 ^3/uL Basophils # (Auto) 0.1 0-0.2 10 ^3/uL Nucleated Red Blood Cells 0.4 % Prothrombin Time 10.8 9.3-11.8 sec Prothrombin Time INR 1.02 0.9-1.15 Sodium Level 134 L 136-145 mmol/L Potassium Level 4.2 3.5-5.1 mmol/L Chloride Level 99 98-107 mmol/L Carbon Dioxide Level 27 20-31 mmol/L Anion Gap 8 5-15 Blood Urea Nitrogen 11 9-23 mg/dL Creatinine 1.25 0.700-1.30 mg/dL Glomerular Filtration Rate Calc 78 >90 mL/min BUN/Creatinine Ratio 8.8 L 10.0-20.0 Serum Glucose 466 *H 74-106 mg/dL Lactic Acid Level 1.7 0.4-2.0 mmol/L Calcium Level 10.5 H 8.7-10.4 mg/dL Total Bilirubin 0.5 0.2-1.0 mg/dL Direct Bilirubin 0.2 <0.3 mg/dL Aspartate Amino Transferase (AST) 33 13-40 U/L Alanine Aminotransferase (ALT) 54 H 7-40 U/L Alkaline Phosphatase 146 H 46-116 U/L Total Protein 8.2 5.7-8.2 g/dL Albumin 4.6 3.2-4.8 g/dL Lipase 112 H 12-53 U/L Beta-Hydroxybutyric Acid 0.132 < 0.4 mmol/L Assessment/Plan Assessment/Plan Assessment Hemoptysis History of liver cirrhosis Uncontrolled diabetes mellitus Morbid obesity Plan Admit the patient to Med [facility] to the hospitalist Pulmonary consult Resume home medications Continue treatment per orders. Plan discussed with: Patient My Orders Orders - DULCE ALVAREZ [facility] Procedure Category Date Status Time Pantoprazole Tablet PHA 12/10/24 In Process (Protonix Tablet) 06:00 *Consult CONS 12/09/24 Transmitted / 20:40 Consistent DIET 12/10/24 Transmitted Carb(Ccho)Diabetes Breakfast Glucose Blood PHA 12/10/24 In Process (Accu-Chek Comfort 00:00 Insulin R (Human) PHA 12/10/24 In Process (Insulin R) 00:00 Dextrose 50% Syringe PHA 12/09/24 In Process 20:45 Admit ADMIT 12/09/24 Transmitted 20:40 Ondansetron Hcl PHA 12/09/24 In Process (Zofran) 20:45 Complete Blood Count LAB 12/10/24 Logged 04:00 Condition: Stable LISA 12/09/24 In Process 20:40 Bedrest With Bathroom LISA 12/09/24 In Process Privileg 20:40 Date of Service: December 09, 2024 Billing Provider: DULCE ALVAREZ Common Visit Codes: [id number] INP/OBS CARE (MOD) DULCE ALVAREZ December 10, 2024 00:44
[2024-12-10 06:20] LABS: Basophils # (auto) 0 10 ^3/uL (0-0.2); Basophils % (auto) 0.6 % (0.0-2.0); Eosinophils # (auto) 0.4 10 ^3/uL (0-0.8); Eosinophils % (auto) 4.8 % (0.0-7.0); Hematocrit 43.3 % (41.0-53.0); Lymphocytes # (auto) 2.7 10 ^3/uL (0.4-5.4); Lymphocytes % (auto) 31.1 % (10.0-50.0); Mean Corpuscular Hemoglobin 28.2 pg (28.0-32.0); Mean Corpuscular Hgb Conc. 34.6 g/dL (32.0-36.0); Mean Corpuscular Volume 81.7 fL (80.0-100.0); Monocytes # (auto) 0.7 10 ^3/uL (0-1.3); Monocytes % (auto) 8.3 % (0.0-12.0); Neutrophils # (auto) 4.8 10 ^3/uL (1.6-8.6); Neutrophils % (auto) 55.2 % (37.0-80.0); Nucleated Red Blood Cells % 0.3 %; Platelet Count (auto) 231 10^3/uL (140-450); Red Cell Distribution Width 13.9 % (11.8-14.3); White Blood Cell 8.6 10^3/uL (4.4-10.8)
[2024-12-10] MEDS: PANTOPRAZOLE 40 MG TAB PO SCH (06:33)
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
[2024-12-10] MEDS ORDERED: DEXTROSE (50%) 50ML SYRG IV PRN (11:45)
--- NOTE | 2024-12-10 22:26 | DVHINCON2 ---
Date of service: December 10, 2024 Referring Physician Roman Steele NP Reason for Consultation Hemoptysis History of Present Illness A 34-year-old man with past medical history of liver cancer, diabetes mellitus, and liver cirrhosis who presented to ED on 12/09/24 for evaluation of hemoptysis. Patient reported a one-day history of cough with dark blood. He denied hematemesis or melena. He reported having multiple episodes of bloody sputum on day of presentation. Denied any shortness or breath. No chest pain. Patient was admitted for further care and pulmonary consultation is requested for evaluation and management due to the above findings. Review of Systems: 14-point review of systems negative unless otherwise noted above. Past Medical History: Liver cancer, diabetes mellitus, liver cirrhosis Past Surgical History: Resection of liver cancer Medications: Reviewed. Allergies: Penicillins Family History: No family history of premature CAD. No family history of lung disorders. Social History: Nonsmoker. No alcohol or illicit drug use. Family History: Patient reports no known family medical history. Allergies: Coded Allergies: Penicillins (Verified Allergy, Severe, 11/17/21) Home Meds No Active Prescriptions or Reported Meds Current Medications Current Medications Medications (Trade) Dose Ordered Sig/Funmi Route PRN Reason Start Time Stop Time Status Last Admin Pantoprazole Sodium (Protonix Tablet) 40 mg DAILY@0600 PO 12/10/24 06:00 12/10/24 06:33 Diagnostic Test (Pha) (Accu-Chek Comfort Curve T) 1 strip IQ4HR 12/10/24 00:00 12/10/24 11:38 DC 12/10/24 08:21 Insulin Human Regular (InsuLIN R) IQ4HR SC 12/10/24 00:00 12/10/24 11:38 DC 12/10/24 04:52 Diagnostic Test (Pha) (Accu-Chek Comfort Curve T) 1 strip ACHS 12/10/24 17:00 Insulin Human Regular (InsuLIN R) HS SC 12/10/24 22:00 Insulin Human Regular (InsuLIN R) AC SC 12/10/24 17:00 Dextrose 50 ml UD PRN IV Blood Sugar LESS THAN 60 12/10/24 11:45 Vital Signs Vital Signs Date Time Temp Pulse Resp B/P (MAP) Pulse Ox O2 Delivery O2 Flow Rate FiO2 12/10/24 17:00 97.9 72 20 127/82 (97) 93 97.9 12/10/24 08:00 Room Air* 0 21 Physical Exam Gen.: Patient lying in bed in no apparent distress. Breathing on room air. Head: Normocephalic, atraumatic. Eyes: EOMI/PERRLA. Ears: Normal hearing. Normal anatomy. Neck/trachea: Trachea midline, supple. Nose: Normal external anatomy. Mouth: Moist mucous membranes. Chest: Decreased air entry bilaterally. No wheezing or rhonchi. Cardiovascular: Positive S1, positive S2. Regular rate and rhythm. Abdomen: Positive bowel sounds in all 4 quadrants. Soft, non-tender, non- distended. : Deferred. Rectal: Deferred. Skin: Warm, dry. Intact. Extremities: 2+ radial pulses bilaterally. No lower extremity edema. Neuro: Awake, alert, oriented x3. No gross motor or sensory deficits. Cranial nerves II through XII intact. Gait not assessed. Labs/Diagnostic Data Labs Test 12/10/24 11:37 12/10/24 05:32 12/09/24 16:47 Range/Units POC Glucose 267 H 70-106 mg/dl White Blood Count 8.6 4.4-10.8 10^3/uL Red Blood Count 5.30 4.5-5.90 10^6/uL Hemoglobin 15.0 13.5-17.5 g/dL Hematocrit 43.3 41.0-53.0 % Mean Corpuscular Volume 81.7 80.0-100.0 fL Mean Corpuscular Hemoglobin 28.2 28.0-32.0 pg Mean Corpuscular Hemoglobin Concent 34.6 32.0-36.0 g/dL Red Cell Distribution Width 13.9 11.8-14.3 % Platelet Count 231 140-450 10^3/uL Mean Platelet Volume 8.9 6.9-10.8 fL Neutrophils (%) (Auto) 55.2 37.0-80.0 % Lymphocytes (%) (Auto) 31.1 10.0-50.0 % Monocytes (%) (Auto) 8.3 0.0-12.0 % Eosinophils (%) (Auto) 4.8 0.0-7.0 % Basophils (%) (Auto) 0.6 0.0-2.0 % Neutrophils # (Auto) 4.8 1.6-8.6 10 ^3/uL Lymphocytes # (Auto) 2.7 0.4-5.4 10 ^3/uL Monocytes # (Auto) 0.7 0-1.3 10 ^3/uL Eosinophils # (Auto) 0.4 0-0.8 10 ^3/uL Basophils # (Auto) 0 0-0.2 10 ^3/uL Nucleated Red Blood Cells 0.3 % Hemoglobin A1c 11.1 H <5.7 % A1C Prothrombin Time 10.8 9.3-11.8 sec Prothrombin Time INR 1.02 0.9-1.15 Sodium Level 134 L 136-145 mmol/L Potassium Level 4.2 3.5-5.1 mmol/L Chloride Level 99 98-107 mmol/L Carbon Dioxide Level 27 20-31 mmol/L Anion Gap 8 5-15 Blood Urea Nitrogen 11 9-23 mg/dL Creatinine 1.25 0.700-1.30 mg/dL Glomerular Filtration Rate Calc 78 >90 mL/min BUN/Creatinine Ratio 8.8 L 10.0-20.0 Serum Glucose 466 *H 74-106 mg/dL Lactic Acid Level 1.7 0.4-2.0 mmol/L Calcium Level 10.5 H 8.7-10.4 mg/dL Total Bilirubin 0.5 0.2-1.0 mg/dL Direct Bilirubin 0.2 <0.3 mg/dL Aspartate Amino Transferase (AST) 33 13-40 U/L Alanine Aminotransferase (ALT) 54 H 7-40 U/L Alkaline Phosphatase 146 H 46-116 U/L Total Protein 8.2 5.7-8.2 g/dL Albumin 4.6 3.2-4.8 g/dL Lipase 112 H 12-53 U/L Beta-Hydroxybutyric Acid 0.132 < 0.4 mmol/L Assessment Impression: Hemoptysis Cirrhosis DM type II, uncontrolled Morbid obesity, BMI 41.3 Dyspnea Plan: Supplemental oxygen PRN Titrate to keep O2 sats above 92%. CXR reviewed, no acute opacities, pleural effusion or pneumothorax. Antitussive PRN cough Monitor hemoptysis Accu-Cheks, ISS. Monitor renal function. Monitor electrolytes. Supplement as necessary. Monitor ins and outs. Diet and lifestyle modifications for weight reduction Morbid obesity - complicates all care Disposition per hospitalist. Note, recent inhalation injury from pouring chemicals into pool. DVT prophylaxis. Prognosis: Poor given patient's multiple co-morbidities. Rest of plan per hospitalist and other consultants. Thank you, RAMON Steele, for allowing me to participate in this patient's care. Further recommendations will depend on the patient's clinical course. Please do not hesitate to contact me if you have any questions or concerns. This medical document was created using an electronic medical record system with [employer] dictation system. Although these documentations are being carefully reviewed, there may still be some phonetic and typographical changes. The errors are purely typographical, due to imperfection on the software program, and do not reflect any compromise in the patient's medical care. Plan discussed with: Patient, Other (CORONA Ornelas/RAMON Steele/) SAMY JAY MD December 10, 2024 22:26
[2024-12-11 01:00] VITALS: BP 141/85; PULSE 88; RESP 19; TEMP 97.8; O2SAT 96
[2024-12-11 05:00] VITALS: BP 148/82; PULSE 90; RESP 19; TEMP 97.7; O2SAT 95
[2024-12-11 06:42] LABS: Hematocrit 44.2 % (41.0-53.0); Hemoglobin 15.6 g/dL (13.5-17.5)
[2024-12-11 07:53] VITALS: PULSE 90; RESP 19; O2SAT 95
--- NOTE | 2024-12-11 08:41 | DVHDS2 ---
Discharge Summary Date of Admission December 09, 2024 at 20:40 Date of Discharge: December 11, 2024 Admitting Diagnosis Hemoptysis Labs/Diagnostic Data: Laboratory Results Test 12/11/24 08:10 12/11/24 05:34 12/10/24 05:32 12/09/24 16:47 POC Glucose 316 mg/dl (70-106) Hemoglobin 15.6 g/dL (13.5-17.5) Hematocrit 44.2 % (41.0-53.0) White Blood Count 8.6 10^3/uL (4.4-10.8) Red Blood Count 5.30 10^6/uL (4.5-5.90) Mean Corpuscular Volume 81.7 fL (80.0-100.0) Mean Corpuscular Hemoglobin 28.2 pg (28.0-32.0) Mean Corpuscular Hemoglobin Concent 34.6 g/dL (32.0-36.0) Red Cell Distribution Width 13.9 % (11.8-14.3) Platelet Count 231 10^3/uL (140-450) Mean Platelet Volume 8.9 fL (6.9-10.8) Neutrophils (%) (Auto) 55.2 % (37.0-80.0) Lymphocytes (%) (Auto) 31.1 % (10.0-50.0) Monocytes (%) (Auto) 8.3 % (0.0-12.0) Eosinophils (%) (Auto) 4.8 % (0.0-7.0) Basophils (%) (Auto) 0.6 % (0.0-2.0) Neutrophils # (Auto) 4.8 10 ^3/uL (1.6-8.6) Lymphocytes # (Auto) 2.7 10 ^3/uL (0.4-5.4) Monocytes # (Auto) 0.7 10 ^3/uL (0-1.3) Eosinophils # (Auto) 0.4 10 ^3/uL (0-0.8) Basophils # (Auto) 0 10 ^3/uL (0-0.2) Nucleated Red Blood Cells 0.3 % Hemoglobin A1c 11.1 % A1C (<5.7) Prothrombin Time 10.8 sec (9.3-11.8) Prothrombin Time INR 1.02 (0.9-1.15) Sodium Level 134 mmol/L (136-145) Potassium Level 4.2 mmol/L (3.5-5.1) Chloride Level 99 mmol/L (98-107) Carbon Dioxide Level 27 mmol/L (20-31) Anion Gap 8 (5-15) Blood Urea Nitrogen 11 mg/dL (9-23) Creatinine 1.25 mg/dL (0.700-1.30) Glomerular Filtration Rate Calc 78 mL/min (>90) BUN/Creatinine Ratio 8.8 (10.0-20.0) Serum Glucose 466 mg/dL (74-106) Lactic Acid Level 1.7 mmol/L (0.4-2.0) Calcium Level 10.5 mg/dL (8.7-10.4) Total Bilirubin 0.5 mg/dL (0.2-1.0) Direct Bilirubin 0.2 mg/dL (<0.3) Aspartate Amino Transferase (AST) 33 U/L (13-40) Alanine Aminotransferase (ALT) 54 U/L (7-40) Alkaline Phosphatase 146 U/L (46-116) Total Protein 8.2 g/dL (5.7-8.2) Albumin 4.6 g/dL (3.2-4.8) Lipase 112 U/L (12-53) Beta-Hydroxybutyric Acid 0.132 mmol/L (< 0.4) Other Laboratory Tests 12/11/24 05:34 12/10/24 05:32 12/09/24 16:47 Brief Hx & Hospital Course: History of Present Illness 34-year-old male presents for evaluation of hemoptysis. Patient reports a one day history of having a cough with dark blood. He denies hematemesis or melena. He reports having multiple episodes of of bloody sputum today. Denies shortness or breath. No chest pain. Course of hospitalization: Patient was free of any hemoptysis or meth emesis while in the hospital. Patient had pulmonology consultation with recommendations reviewed. Patient reports having a significant history of cirrhosis with portal hypertension and previous variceal banding. Given the patient reporting some coffee-ground emesis prior to coming in the hospital, patient was monitored with respect to his H&H for any signs of anemia or active bleeding. Patient's H&H remained stable. Long discussion was made with the patient regarding his hyperglycemia. Patient states that he does not check his blood sugars at home. Currently he takes glipizide at home. Regular insulin sliding scale was initiated with extra subcutaneous insulin given for his noted hyperglycemia this a.m.. Patient reports that he has an appointment with his property accountant today at 1:00 p.m., for which the patient is stable to be discharged as instructed to follow up with his property accountant as well as his PCP in 1-2 weeks. Patient was agreeable with discharge plan. All questions answered. Physical examination General: Alert and Oriented x3. No acute distress. Well-nourished. Morbid obesity Eyes: EOMI. Anicteric. HENT: Moist mucous membranes. Lungs: Clear to auscultation bilaterally. No accessory muscle use. Cardiovascular: Regular rate and rhythm. No murmur. No JVD. Abdomen: Soft, non-tender and non-distended. No palpable masses. Extremities: No edema. Non-tender. Skin: No rashes or lesions. Warm. Neurologic: No focal neurological deficits. CN II-XII grossly intact, but not individually tested. Psychiatric: Cooperative. Appropriate mood and affect. Total time spent with patient discussing and formulating plan of care: 35 minutes. This medical document was created using an electronic medical record system with [employer] dictation system. Although this document has been carefully reviewed, there may still be some phonetic and typographical errors. These areas are purely typographical due to imperfections of the software programs, and do not reflect any compromise in the patient's medical care. Consults/Reason for consult Ignition Specialist: Hemoptysis Condition at Discharge: Fair Final Diagnosis/Problems List Hemoptysis Secondary diagnosis: Medication noncompliance -ruled out hematemesis -history of esophageal varices with banding -cirrhosis -diabetes mellitus, uncontrolled -morbid obesity Discharge Disposition: Home Discharge Instruct/Medications Diet: Consistent carbohydrate Activity: No Restrictions, As Tolerated Follow Up/Referral: Follow up with established property accountant appointment today Follow up with PCP in 1-2 weeks Medications: Continue all home medications 36 Discharge Statement: "Patient was advised to return to the ER or call 911 if any headaches, dizziness, shortness of breath, chest pain, abdominal pain, bleeding, fevers, or worsening of medical condition. Patient was counseled about treatment plan, medications, possible side effects, patient�verbalized understanding. All questions were answered to the best of my ability. This discharge took greater then 30 minutes in planning, reviewing documentation, counseling the patient, and discussing with other team members." ASSESSMENT ASSESSMENT Assessment Hemoptysis Date of Service: December 11, 2024 Billing Provider: CINDY ALBERTS NP Common Visit Codes: 65795-SRW/OBS DISCH DAY >30min CINDY ALBERTS NP December 11, 2024 08:41
[2024-12-11] MEDS: InsuLIN REG 1unit/0.01ml Soln (100units/ml) SC ONE (08:54)
[2024-12-11 09:36] VITALS: BP 148/82; PULSE 90; RESP 19; TEMP 97.7; O2SAT 95
--- NOTE | 2024-12-11 22:40 | DVHPN2 ---
Progress Note - Dictate Date Seen: December 11, 2024 Medical Necessity Reason Pt with a Central, PICC or Fol: No Subjective Patient seen and examined at bedside. Breathing comfortably on room air. Overnight events reviewed. vital signs Vital Sign Date Time Temp Pulse Resp B/P (MAP) Pulse Ox O2 Delivery O2 Flow Rate FiO2 12/11/24 09:36 97.7 90 19 95 12/11/24 07:53 Room Air* 0 21 12/11/24 05:00 148/82 (104) Total Intake and Output 12/10/24 12/10/24 12/11/24 15:00 23:00 07:00 Intake Total 360 ml 960 ml 1200 ml Balance 360 ml 960 ml 1200 ml objective Gen.: Patient lying in bed in no apparent distress. Breathing on room air. Head: Normocephalic, atraumatic. Eyes: EOMI/PERRLA. Ears: Normal hearing. Normal anatomy. Neck/trachea: Trachea midline, supple. Nose: Normal external anatomy. Mouth: Moist mucous membranes. Chest: Decreased air entry bilaterally. No wheezing or rhonchi. Cardiovascular: Positive S1, positive S2. Regular rate and rhythm. Abdomen: Positive bowel sounds in all 4 quadrants. Soft, non-tender, non- distended. : Deferred. Rectal: Deferred. Skin: Warm, dry. Intact. Extremities: 2+ radial pulses bilaterally. No lower extremity edema. Neuro: Awake, alert, oriented x3. No gross motor or sensory deficits. Cranial nerves II through XII intact. Gait not assessed. laboratory and microbiology Laboratory Tests 12/11/24 05:34 12/10/24 05:32 12/09/24 16:47 Test 12/09/24 16:47 Range/Units Serum Glucose 466 *H 74-106 mg/dL Assessment/Plan Impression: Hemoptysis, resolved Cirrhosis DM type II, uncontrolled Morbid obesity, BMI 41.3 Events: Breathing on room air Supplemental oxygen PRN Hemoptysis is resolved. No new complaints Patient is stable for discharge from the pulmonary standpoint. Labs reviewed. Plan: Supplemental oxygen PRN Titrate to keep O2 sats above 92%. Antitussive PRN cough Accu-Cheks, ISS. Monitor renal function. Monitor electrolytes. Supplement as necessary. Monitor ins and outs. Diet and lifestyle modifications for weight reduction Morbid obesity - complicates all care Disposition per hospitalist. Note, recent inhalation injury from pouring chemicals into pool. DVT prophylaxis. Prognosis: Guarded given patient's multiple co-morbidities. Rest of plan per hospitalist and other consultants. Thank you, RAMON Steele, for allowing me to participate in this patient's care. Further recommendations will depend on the patient's clinical course. Please do not hesitate to contact me if you have any questions or concerns. This medical document was created using an electronic medical record system with [employer] dictation system. Although these documentations are being carefully reviewed, there may still be some phonetic and typographical changes. The errors are purely typographical, due to imperfection on the software program, and do not reflect any compromise in the patient's medical care. Plan discussed with: Patient, Other (CORONA Ornelas) SAMY JAY MD December 11, 2024 22:40
== END 2024-12-11 10:15 | disposition home or self-care (01) | DRG 145 ==
LOC: ER 16:02 → OVERFLOW 20:40 → CENTRAL 20:43
PROVIDERS: ADMIT Nurse Practitioner Acute Care; ATTEND Nurse Practitioner Acute Care
DX: R04.2 Hemoptysis (principal); K74.60 Unspecified cirrhosis of liver; E11.65 Type 2 diabetes mellitus with hyperglycemia; E66.01 Morbid (severe) obesity due to excess calories; Z91.148 Patient's other noncompliance with medication regimen for other reason; Z68.41 Body mass index [BMI] 40.0-44.9, adult; Z79.899 Other long term (current) drug therapy; Z85.05 Personal history of malignant neoplasm of liver; Z90.49 Acquired absence of other specified parts of digestive tract; Z88.0 Allergy status to penicillin
CPT/HCPCS: 36415; 71045; 80048; 80076; 82010; 82962; 83036; 83605; 83690; 85014; 85018; 85025; 85610; 86850; 86900; 86901; 96361; 96374; 96375; 99291; G0378; J1815; J2405; J2470

== ENCOUNTER 2025-04-25 03:29 | Emergency (ER) | payer MEDICAID ==
[~2025-04-25] VITALS: Ht 190.5 cm; Wt 145.5 kg
[2025-04-25 03:38] VITALS: BP 143/88; PULSE 81; RESP 18; TEMP 97.5; O2SAT 94
[2025-04-25] MEDS ORDERED: PANTOPRAZOLE 40 MG/10 ML VIAL INJ IV ONE (05:00)
[2025-04-25] MEDS ORDERED: OCTREOTIDE ACETATE 100 MCG/ML VL IV ONE (05:00)
--- NOTE | 2025-04-25 05:06 | ED.PDOC ---
GI ASSESSMENT HPI Comments This is a 35 year-old male who presents to the ED with a chief complaint of hematemesis minutes ago. Patient reports vomit was not too dark or bright in red color. Patient has a Hx of Esophageal Varices and a SHx of Esophageal Varices Banding done at [facility]. Patient states he is taking Coreg, as prescribed by his PCP. Patient reports this happening before, but otherwise denies further associated symptoms of diarrhea, constipation, weakness, fever, chills, dizziness, or headache. REVIEW OF SYSTEMS: General: No fever, no chills, or fatigue HEENT: No sore throat, no earache, no congestion, no neck pain. Cardiac: No chest pain. No palpitations. Lungs: No shortness of breath, no cough. GI: Positive nausea, Positive vomiting, Positive Hematemesis. no diarrhea, no constipation, no abdominal pain : No dysuria, frequency, or urgency. No hematuria. Musculoskeletal: No joint pain , no joint swelling, no extremity edema. Skin: No rash, no itching. Neuro: No headache, no dizziness, no weakness EXAM: General: Awake, alert and oriented. No acute distress. Skin: Skin in warm, dry and intact. Appropriate color for ethnicity. HEENT: The head is normocephalic and atraumatic. Conjunctivae are clear without exudates or hemorrhage. Sclera is non-icteric. EOM are intact. No signs of nystagmus. Eyelids are normal in appearance without swelling or lesions. Oral mucosa is pink and moist Neck: The neck is supple with normal range of motion. No JVD. Cardiac: Heart rate and rhythm are normal. No murmurs, gallops, or rubs are auscultated. Respiratory: No signs of respiratory distress. Lung sounds are clear in all lobes bilaterally without rales, rhonchi, or wheezes. Abdominal: Abdomen is soft, non-tender without distention. Bowel sounds are present and normoactive in all four quadrants. Extremities: Upper and lower extremities are atraumatic in appearance without deformity or edema. Neurological: The patient is awake, alert and oriented to person, place, and time with normal speech. Speech is clear. There is no facial asymmetry. Psychiatric: Appropriate mood and affect. Good judgement and insight Chief Complaint: GI Bleed Time Seen by MD: 04:51 Primary Care Provider: ROMARIO Reviewed Notes: Medications, Allergies Allergies: Coded Allergies: Penicillins (Verified Allergy, Severe, 11/17/21) Home Meds No Active Prescriptions or Reported Meds Information Source: Patient Mode of Arrival: Ambulatory Timing: Hours Prehospital treatment: None Severity: Moderate Pain Location: None Associated sign and symptoms: Hematemesis Past Medical History PAST MEDICAL HISTORY: DM Past Medical History (Other): Cirrhosis Surgical History: Cholecystectomy Family History Family History: Reviewed,noncontributory to illness, Unknown Social History Smoker: Non-Smoker Alcohol: Denies ETOH Use Drugs: Denies Drug Use Lives In: Home Was a procedure done? Was a procedure done?: No GI differential Dx Differential Diagnosis: Constipation, Gastritis/PUD, Gastroenteritis, Inflammatory BD, UTI, Dehydration, Diabetes/ DKA, Electrolyte Imbalance, Bacterial, Parasitic, Viral X-Ray, Labs, Meds, VS Vital Signs Date Time Temp Pulse Resp B/P (MAP) Pulse Ox O2 Delivery O2 Flow Rate FiO2 04/25/25 03:38 97.5 81 18 143/88 94 97.5 Time of 1ST Reevaluation: 05:26 Reevaluation 1ST: Unchanged Patient Education/Counseling: Other (Need for admission) Family Education/Counseling: No Family Present Medical Screening: No EMC Exist At This Time Change of Shift?: Yes (Signed out to Dr. Kirkpatrick at 0600 pending lab, imaging results and disposition. ) SEPSIS Sepsis Screen Date sepsis recognized/suspect: Apr 25, 2025 Time Sepsis recognized/suspect: 343 Recent Procedure: No On Antibiotic Therapy: No Respiratory Rate >20: No Heart Rate >90: No Temp<36 C (96.8 F) or >38.3 C: No SBP <90 or MAP <65 mmHG: No New Acute Mental Status Change: No Is the patient on CPAP, BIPAP,: No Vital Signs Date Time Temp Pulse Resp B/P (MAP) Pulse Ox O2 Delivery O2 Flow Rate FiO2 04/25/25 03:38 97.5 81 18 143/88 94 97.5 Departure 1 Departure Time of Disposition: 06:00 Impression: Primary Impression: Hematemesis Additional Impressions: Upper GI bleed History of esophageal varices Disposition: 30 STILL A PATIENT Condition: Stable e-Prescriptions No Active Prescriptions or Reported Meds Critical Care Note Critical Care Time?: No Stability Stability form required: No Heart Score Heart Score: Heart Score Response (Comments) Value History N/A 0 EKG N/A 0 Age N/A 0 Risk Factors N/A 0 Troponin N/A 0 Total 0 I personally scribed for FLORENCIA BARRAGAN MD ([email or web address]) on 04/25/25 at 05:06. Electronically submitted by Bianca Soares ([employer]). FLORENCIA BARRAGAN MD Apr 25, 2025 05:06
== END 2025-04-25 10:28 | disposition left against medical advice (07) ==
LOC: ER 03:29
DX: K92.0 Hematemesis (principal); K92.2 Gastrointestinal hemorrhage, unspecified; E11.9 Type 2 diabetes mellitus without complications; Z88.0 Allergy status to penicillin; Z90.49 Acquired absence of other specified parts of digestive tract

== ENCOUNTER 2025-06-05 11:35 | Emergency (ER) | payer MEDICAID ==
[~2025-06-05] VITALS: Ht 190.5 cm; Wt 147.1 kg
[2025-06-05 11:41] VITALS: BP 154/96; RESP 16; TEMP 98.2; O2SAT 97
--- NOTE | 2025-06-05 11:43 | ECG ---
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
[2025-06-05] MEDS: NITROGLYCERIN 0.4 MG SL TAB SL ONE (12:04)
--- NOTE | 2025-06-05 12:04 | ED.PDOC ---
HPI Comments MOISE CAREY HPI: Poor Historian. 35-year-old male presents to emergency department for evaluation of midsternal chest pressure nonradiating was intermittent last night at 9:30 p.m. but is now constant. No alleviating or precipitating factors. Patient has some mild associated shortness of breath. Past Medical History: Hypertension, BUSH ,Cancer, diabetes mellitus, liver cirrhosis Past Surgical History: Liver cancer removed Medications: propanolol, dapagliflozin (Farxiga) Social history: denies EOTH, denies tobacco use, denies drug use Allergies: penicillins REVIEW OF SYSTEMS: CONSTITUTIONAL: Denies acute: fever, diaphoresis, chills, generalized weakness. HEAD: Denies acute: headache, photophobia Eyes: Denies acute: Double vision, vision loss, eye pain, eye discharge. EARS: Denies acute: tinnitus, hearing loss, ear discharge, ear pain, THROAT: Denies acute: sore throat, swelling, difficulty swallowing , pain with swallowing, change in voice. NECK: Denies acute: neck pain, neck swelling, stiff neck. HEART: Denies acute : palpitations, LUNGS: Denies acute: wheezing, cough, hemoptysis ABDOMEN: Denies acute: abdominal pain, Nausea, Vomiting, diarrhea, melena , hematemesis, hematochezia SKIN: Denies acute: rash, redness, lesions, itchiness. EXTREMITIES: Denies acute: calf pain, numbness, tingling, weakness, denies pain in extremity. Denies acute: Low back pain. Neuro: Denies acute: focal neurological deficit, motor or sensory focal neurological de ficit, tremors, seizure like activity, confusion, dizziness, change in mental status, loss of bowel or bladder function, cauda equina like symptoms. : Denies acute: dysuria, hematuria, flank pain, increase in urinary frequency. PSYCH: Denies acute: hallucination, suicidal ideation, homicidal ideation. PHYSICAL EXAM: General: -----mild---acute distress, awake and alert. Head: normocephalic, atraumatic. Neck: supple, trachea is midline, no swelling. Throat: Normal phonation. Eyes:, no erythema, no purulent discharge, no proptosis, no icterus. Heart: regular rate, regular rhythm, no significant murmur appreciated. Lungs: no apparent respiratory distress, Able to speak in full sentences. No wheezing, no rhonchi, no crackles. No stridors Clear to auscultation bilaterally. Abdomen: non tender to palpation, non distended, soft, no guarding, no rebound, + bowel sounds. Neuro: Awake, Alert, oriented to name, self, situation, follows commands GCS=15. Speech is normal. Skin: no petechia, no purpura, no cyanosis, non-pale, not jaundice. Lower extremities: --no - Pitting edema no deformity, no focal swelling, no calf TTP. Makes eye contact. moves all four extremities. Face: no apparent facial droop. Ambulating in the ED independently. ED COURSE: DISCLAIMER: This medical document was created using an electronic medical record system with voice recognition software and computerized dictation system. Although this document has been carefully reviewed, there might still be some phonetic and typographical errors. Occasional wrong-word or "sound-alike" substitutions may have occurred due to the inherent limitations of voice recognition software. These areas are purely typographical due to imperfections of the software programs and do not reflect any compromise in the patient's medical care. Please read the chart carefully and recognize, using context, where these substitutions have occurred. Chief Complaint: Chest Pain Time Seen by MD: 11:38 Primary Care Provider: ROMARIO Ambrosio Notes: Allergies Allergies: Coded Allergies: Penicillins (Verified Allergy, Severe, 11/17/21) Home Meds No Active Prescriptions or Reported Meds Information Source: Patient Mode of Arrival: Ambulatory Brought in by: self Past Medical History PAST MEDICAL HISTORY: DM, Liver Surgical History: Cholecystectomy Family History Family History: Reviewed,noncontributory to illness, Unknown Social History Smoker: Non-Smoker Alcohol: Denies ETOH Use Drugs: Denies Drug Use Lives In: Home Was a procedure done? Was a procedure done?: No CP Differential Dx Differential Diagnosis: N/A Differential Diagnosis: Other (Ddx include but not limitied to gastritis, musculoskeletal pain, radiculopathy, atypical chest pain, dissection, aneurysm, ACS, unstable angina, hiatal hernia, GERD, anxiety, costochondritis, PE, pneumothroax, neoplasm, cardiac ischemia, drug abuse, anemia.) X-Ray, Labs, Meds, VS Vital Signs Date Time Temp Pulse Resp B/P (MAP) Pulse Ox O2 Delivery O2 Flow Rate FiO2 06/05/25 12:46 68 06/05/25 12:04 132/81 06/05/25 11:42 67 06/05/25 11:41 98.2 69 16 154/96 97 98.2 Lab Test 06/05/25 12:40 06/05/25 11:55 Range/Units Troponin I High Sensitivity 3 L 3 L </=54 ng/L White Blood Count 9.6 4.4-10.8 10^3/uL Red Blood Count 5.57 4.5-5.90 10^6/uL Hemoglobin 15.7 13.5-17.5 g/dL Hematocrit 45.4 41.0-53.0 % Mean Corpuscular Volume 81.4 80.0-100.0 fL Mean Corpuscular Hemoglobin 28.2 28.0-32.0 pg Mean Corpuscular Hemoglobin Concent 34.6 32.0-36.0 g/dL Red Cell Distribution Width 13.2 11.8-14.3 % Platelet Count 255 140-450 10^3/uL Mean Platelet Volume 9.3 6.9-10.8 fL Neutrophils (%) (Auto) 59.6 37.0-80.0 % Lymphocytes (%) (Auto) 30.4 10.0-50.0 % Monocytes (%) (Auto) 6.5 0.0-12.0 % Eosinophils (%) (Auto) 2.9 0.0-7.0 % Basophils (%) (Auto) 0.6 0.0-2.0 % Neutrophils # (Auto) 5.7 1.6-8.6 10 ^3/uL Lymphocytes # (Auto) 2.9 0.4-5.4 10 ^3/uL Monocytes # (Auto) 0.6 0-1.3 10 ^3/uL Eosinophils # (Auto) 0.3 0-0.8 10 ^3/uL Basophils # (Auto) 0.1 0-0.2 10 ^3/uL Nucleated Red Blood Cells 0.2 % D-Dimer, Quantitative < 0.19 0.0-0.49 mg/L FEU Sodium Level 139 136-145 mmol/L Potassium Level 4.2 3.5-5.1 mmol/L Chloride Level 101 98-107 mmol/L Carbon Dioxide Level 30 20-31 mmol/L Anion Gap 8 5-15 Blood Urea Nitrogen 9 9-23 mg/dL Creatinine 1.23 0.700-1.30 mg/dL Glomerular Filtration Rate Calc 79 >90 mL/min BUN/Creatinine Ratio 7.3 L 10.0-20.0 Serum Glucose 331 H 74-106 mg/dL Calcium Level 9.0 8.7-10.4 mg/dL Total Bilirubin 0.5 0.2-1.0 mg/dL Aspartate Amino Transferase (AST) 53 H 13-40 U/L Alanine Aminotransferase (ALT) 72 H 7-40 U/L Alkaline Phosphatase 133 H 46-116 U/L B-Type Natriuretic Peptide 1.88 0-100 pg/mL Total Protein 8.0 5.7-8.2 g/dL Albumin 4.3 3.2-4.8 g/dL [place] [id number] Ph: [phone] DIAGNOSTIC IMAGING Diagnostic Imaging Report : [id number] Signed PATIENT: JONEL BAILEY MACCT: [id number] UNIT: [id number] : 1990 LOC: ER ROOM / BED: / AGE / SEX: 35 / M ADM STATUS: REG ER SERVICE 1148 ORDERING PHYSICIAN: MALORIE MCCLELLAND DO PROCEDURE(s): CXRP - CHEST PORTABLE REASON: cp ORDER NUMBER(s): [id number], ACCESSION NUMBER(s): [id number] CHEST RADIOGRAPH Indication: cp Technique: Single frontal view of the chest was obtained COMPARISON: XY CHEST PORTABLE on DOS: 12/09/24, XY CHEST TWO VIEWS ROUTINE on DOS: 06/28/24, XR CHEST 1 VIEW on DOS: 05/17/24 FINDINGS: Lines and Tubes: None Lungs: No focal consolidation. Left midlung scarring. Pleura: No effusion. No pneumothorax. Cardiomediastinal contours: Unremarkable Bones: Unremarkable IMPRESSION: No acute disease. ATED BY: FARHAN IRVING MD DICTATED DATE/TIME: 06/05/25 1219 SIGNED BY: FARHAN IRVING MD SIGNED DATE/TIME: 06/05/25 1219 CC: Time of 1ST Reevaluation: 12:05 Reevaluation 1ST: Unchanged Patient Education/Counseling: Diagnosis, Treatment Family Education/Counseling: No Family Present Comments MDM: patient presented with the above HPI.---cardiac---workup was initiated. patient was found with the above mentioned diagnosis. the following medications were ordered: please refer to order lists of meds and tests obtained by myself Dr. Mcclelland. Patient has been observed in the ED adequate length of time to insure improvement/stability. Escalation of care considered: Consideration of escalation to observation or admission Patient was ADMITTED to the medicine team for further evaluation and treatment of their presentation. However we were informed that the patient eloped All the reports of any imaging studies that were ordered by myself were reviewed by myself. SEPSIS Sepsis Screen Date sepsis recognized/suspect: Jun 05, 2025 Time Sepsis recognized/suspect: 1143 Recent Procedure: No On Antibiotic Therapy: No Respiratory Rate >20: No Heart Rate >90: No Temp<36 C (96.8 F) or >38.3 C: No SBP <90 or MAP <65 mmHG: No New Acute Mental Status Change: No Is the patient on CPAP, BIPAP,: No Physician Orders Electrocardigram (06/05/25 14:38) E Mail System Administrator (06/05/25 ) Chest Portable (06/05/25 11:48) Vital Signs Date Time Temp Pulse Resp B/P (MAP) Pulse Ox O2 Delivery O2 Flow Rate FiO2 06/05/25 12:46 68 06/05/25 12:04 132/81 06/05/25 11:42 67 06/05/25 11:41 98.2 69 16 154/96 97 98.2 Laboratory Tests Test 06/05/25 11:55 White Blood Count 9.6 10^3/uL (4.4-10.8) Departure 1 Departure Time of Disposition: 15:31 Impression: Primary Impression: Chest pain Additional Impressions: Hyperglycemia due to diabetes mellitus Eloped from emergency department Disposition: 07 LEFT AWOL/ELOPED Condition: Stable Additional Instructions: Additional instructions: Please read all instructions provided in this packet carefully. You MUST follow-up with your primary care/family doctor in 1 to 2 days. If you are unable to see your primary care/family doctor, please return to our emergency room for re-assessment and re-evaluation in 1 to 2 days. Return to the emergency room here in our facility or to the nearest ER [facility] if your symptoms change or worsen. CONSULTATIONS: you MUST Follow-up for consultation as soon as possible with: -cardiology in 1-2 days. Please call for appointment You MUST call the consultants office yourself to make an appointment. You may need to arrange that through your insurance and/or your primary/family doctor. If you are unable to see the c consultant in 1 to 2 days, you must return to our emergency room (or any other ER of your choice) for re-assessment and re- evaluation. Adequate fluid hydration. Although you have been discharged from the Emergency Department, this does not mean that you have a "clean bill of health". No definitive diagnosis for your symptoms has been made today. It is possible that you are in the process of developing a serious illness. This is why you must return to the ED without fail if any new or worsening symptoms develop. e-Prescriptions No Active Prescriptions or Reported Meds Discharged With: Self Critical Care Note Critical Care Time?: No Heart Score Heart Score: Heart Score Response (Comments) Value History Moderate Suspicious 1 EKG Normal 0 Age <45 0 Risk Factors 1 or 2 risk factors 1 Troponin Normal limit 0 Total 2 I personally scribed for MALORIE MCCLELLAND DO ([email or web address]) on 06/05/25 at 12:04. Electronically submitted by Elvie Erickson ([employer] [employer]). I personally scribed for MALORIE MCCLELLAND DO ([email or web address]) on 06/05/25 at 13:31. Electronically submitted by Elvie Erickson ([employer]). MALORIE MCCLELLAND DO Jun 05, 2025 12:04
--- NOTE | 2025-06-05 12:21 | DVH ---
CHEST RADIOGRAPH Indication: cp Technique: Single frontal view of the chest was obtained COMPARISON: XY CHEST PORTABLE on DOS: 12/09/24, XY CHEST TWO VIEWS ROUTINE on DOS: 06/28/24, XR CHEST 1 VIEW on DOS: 05/17/24 FINDINGS: Lines and Tubes: None Lungs: No focal consolidation. Left midlung scarring. Pleura: No effusion. No pneumothorax. Cardiomediastinal contours: Unremarkable Bones: Unremarkable IMPRESSION: No acute disease.
[2025-06-05 12:23] LABS: Hematocrit 45.4 % (41.0-53.0); Hemoglobin 15.7 g/dL (13.5-17.5); Mean Corpuscular Hemoglobin 28.2 pg (28.0-32.0); Mean Corpuscular Volume 81.4 fL (80.0-100.0); Nucleated Red Blood Cells % 0.2 %
[2025-06-05 12:42] LABS: Albumin 4.3 g/dL (3.2-4.8); Anion Gap 8 (5-15); BUN/Creatinine Ratio 7.3 (10.0-20.0); Bilirubin, Total 0.5 mg/dL (0.2-1.0); Calcium 9.0 mg/dL (8.7-10.4); Carbon Dioxide 30 mmol/L (20-31); Chloride 101 mmol/L (98-107); Potassium 4.2 mmol/L (3.5-5.1); Sodium 139 mmol/L (136-145); Total Protein 8.0 g/dL (5.7-8.2)
[2025-06-05 12:46] VITALS: PULSE 68
--- NOTE | 2025-06-05 12:47 | ECG ---
[facility] Test Date: 2025-06-05 Test Time: 12:46:08 Pat Name: JONEL BAILEY Department: Room: Gender: M Quebracho Tanner: : 1990 Requested By: EMERGENCY EMERGENCY Order Number: [id number] Reading MD: Nicanor Berman Measurements Intervals [place] Rate: 68 P: 68 TN: 205 QRS: 52 QRSD: 115 T: 24 QT: 395 QTc: 421 Interpretive Statements Sinus rhythm Incomplete right bundle branch block ST elevation, consider anterolateral injury Electronically Signed On 06-11-2025 13:24:00 PST by Nicanor Berman Please click the below link to view image of tracing.
[2025-06-05 12:55] LABS: Alanine Aminotransferase 72 U/L (7-40); Alkaline Phosphatase 133 U/L (46-116); Blood Urea Nitrogen 9 mg/dL (9-23); Glucose 331 mg/dL (74-106)
== END 2025-06-05 16:11 | disposition left against medical advice (07) ==
LOC: ER 11:35
DX: R07.89 Other chest pain (principal); E11.65 Type 2 diabetes mellitus with hyperglycemia; Z90.49 Acquired absence of other specified parts of digestive tract; Z85.05 Personal history of malignant neoplasm of liver; Z88.0 Allergy status to penicillin
CPT/HCPCS: 36415; 71045; 80053; 83880; 84484; 85025; 85379; 93005

== ENCOUNTER 2025-07-26 13:18 | Emergency (ER) | payer MEDICAID ==
[~2025-07-26] VITALS: Ht 190.5 cm; Wt 145.6 kg
[2025-07-26 13:27] VITALS: TEMP 97.9
--- NOTE | 2025-07-26 14:13 | ED.PDOC ---
GI ASSESSMENT HPI Comments 35 y.o male presents to the ED for a chief complaint of epigastric pain that started s/p EGD 2 [address] [facility]. Patient had an EGD due to hx of varices and states usually does not have pain afterwards. Patient called nurses today at the hospital who recommended him to come into the ED. Patient descvribed pain as sharp and rating a 7/10 on the pain scale. He was vomiting yesterday however denies any N/V today. He denies any rectal bleeding, hematemesis, fever, chills, diarrhea. Chief Complaint: Abdominal Pain Time Seen by MD: 14:05 Primary Care Provider: ROMARIO Ambrosio Notes: Nurses Notes, Medications, Allergies Allergies: Coded Allergies: Penicillins (Verified Allergy, Severe, 11/17/21) Home Meds No Active Prescriptions or Reported Meds Information Source: Patient Mode of Arrival: Ambulatory Timing: Days (2) Duration: Since onset Quality: Sharp Vomitus: None Stool: Normal Severity: Moderate Recent: None Recent Hx of: Varicies Pain Location: Epigastric Modifying Factors: Nothing Associated sign and symptoms: Abdominal Pain Past Medical History PAST MEDICAL HISTORY: DM, Liver Surgical History: Cholecystectomy Family History Family History: Reviewed,noncontributory to illness, Unknown Social History Smoker: Non-Smoker Alcohol: Denies ETOH Use Drugs: Denies Drug Use Lives In: Home Constitutional: denies: chills, diaphoresis, fatigue, fever, malaise, sweats, weakness, others EENTM: denies: blurred vision, double vision, ear bleeding, ear discharge, ear drainage, ear pain, ear ringing, eye pain, eye redness, hearing loss, mouth pain, mouth swelling, nasal discharge, nose bleeding, nose congestion, nose pain, photophobia, tearing, throat pain, throat swelling, voice changes, others Respiratory: denies: cough, hemoptysis, orthopnea, SOB at rest, shortness of breath, SOB with excertion, stridor, wheezing, others Cardiovascular: denies: chest pain, dizzy spells, diaphoresis, Dyspnea on exertion, edema, irregular heart beat, left arm pain, lightheadedness, palpitations, PND, syncope, others Gastrointestinal: reports: abdominal pain; denies: abdomen distended, blood streaked bowels, constipated, diarrhea, dysphagia, difficulty swallowing, hematemesis, melena, nausea, poor appetite, poor fluid intake, rectal bleeding, rectal pain, vomiting, others Genitourinary: denies: burning, dysuria, flank pain, frequency, hematuria, incontinence, penile discharge, penile sore, pain, testicle pain, testicle swelling, urgency, others Neurological: denies: dizziness, fainting, headache, left sided numbness, left sided weakness, numbness, paresthesia, pre-existing deficit, right sided numb ness, right sided weakness, seizure, speech problems, tingling, tremors, weakness, others Musculoskeletal: denies: back pain, gout, joint pain, joint swelling, muscle pain, muscle stiffness, neck pain, others Integumetry: denies: bruises, change in color, change in hair/nails, dryness, laceration, lesions, lumps, rash, wounds, others Allergic/Immunocompromised: denies: Difficulty Healing, Frequent Infections, Hives, Itching, others Hematologic/Lymphatic: denies: anemia, blood clots, easy bleeding, easy bruising, swollen glands, others Endocrine: denies: excessive hunger, excessive sweating, excessive thirst, excessive urination, flushing, intolerance to cold, intolerance to heat, unexplained weight gain, unexplained weight loss, others Psychiatric: denies: anxiety, bipolar disorder, depression, hopeless, panic disorder, schizophrenia, sleepless, suicidal, others All Other Systems: Reviewed and Negative Physical Exam General Appearance: Moderate Distress, Obese HEENT: Normal ENT Inspection, Pharynx Normal, TMs Normal Neck: Full Range of Motion, Non-Tender, Normal, Normal Inspection Respiratory: Chest Non-Tender, Lungs Clear, No Accessory Muscle Use, No Respiratory Distress, Normal Breath Sounds Cardiovascular: No Edema, No JVD, No Murmur, No Gallop, Normal Peripheral Pulses, Regular Rate/Rhythm Breast Exam: Deferred Gastrointestinal: Epigastric, No Organomegaly, No Pulsatile Mass, Normal Bowel Sounds, Soft, Tenderness Genitalia: Deferred Pelvic: Deferred Rectal: Deferred Extremities: No calf tenderness, Normal capillary refill, Normal inspection, Normal range of motion, Non-tender, No pedal edema Musculoskeletal : Apperance: Normal Neurologic: Alert, trolley cleaner II-XII nml as Tested, No Motor Deficits, Normal Affect, Normal Mood, No Sensory Deficits Cerebellar Function: Normal Reflexes: Normal Skin: Dry, Normal Color, Warm Lymphatic: No Adenopathy Was a procedure done? Was a procedure done?: No GI differential Dx Differential Diagnosis: Cholangitis, Cholecystitis, Esophagitis, Gastroenteritis, Pancreatitis X-Ray, Labs, Meds, VS Vital Signs Date Time Temp Pulse Resp B/P (MAP) Pulse Ox O2 Delivery O2 Flow Rate FiO2 07/26/25 15:25 82 17 140/94 (109) 97 07/26/25 13:27 97.9 87 20 147/87 97 97.9 Lab Test 07/26/25 14:23 Range/Units White Blood Count 11.7 H 4.4-10.8 10^3/uL Red Blood Count 5.72 4.5-5.90 10^6/uL Hemoglobin 16.1 13.5-17.5 g/dL Hematocrit 46.0 41.0-53.0 % Mean Corpuscular Volume 80.5 80.0-100.0 fL Mean Corpuscular Hemoglobin 28.1 28.0-32.0 pg Mean Corpuscular Hemoglobin Concent 34.9 32.0-36.0 g/dL Red Cell Distribution Width 14.1 11.8-14.3 % Platelet Count 264 140-450 10^3/uL Mean Platelet Volume 8.9 6.9-10.8 fL Neutrophils (%) (Auto) 64.9 37.0-80.0 % Lymphocytes (%) (Auto) 24.8 10.0-50.0 % Monocytes (%) (Auto) 7.1 0.0-12.0 % Eosinophils (%) (Auto) 2.4 0.0-7.0 % Basophils (%) (Auto) 0.8 0.0-2.0 % Neutrophils # (Auto) 7.6 1.6-8.6 10 ^3/uL Lymphocytes # (Auto) 2.9 0.4-5.4 10 ^3/uL Monocytes # (Auto) 0.8 0-1.3 10 ^3/uL Eosinophils # (Auto) 0.3 0-0.8 10 ^3/uL Basophils # (Auto) 0.1 0-0.2 10 ^3/uL Nucleated Red Blood Cells 0.2 % Sodium Level 134 L 136-145 mmol/L Potassium Level 4.3 3.5-5.1 mmol/L Chloride Level 97 L 98-107 mmol/L Carbon Dioxide Level 29 20-31 mmol/L Anion Gap 8 5-15 Blood Urea Nitrogen 8 L 9-23 mg/dL Creatinine 1.07 0.700-1.30 mg/dL Glomerular Filtration Rate Calc 93 >90 mL/min BUN/Creatinine Ratio 7.5 L 10.0-20.0 Serum Glucose 422 *H 74-106 mg/dL Calcium Level 9.6 8.7-10.4 mg/dL Total Bilirubin 0.4 0.2-1.0 mg/dL Aspartate Amino Transferase (AST) 55 H 13-40 U/L Alanine Aminotransferase (ALT) 70 H 7-40 U/L Alkaline Phosphatase 133 H 46-116 U/L Total Protein 8.2 5.7-8.2 g/dL Albumin 4.3 3.2-4.8 g/dL Lipase 75 H 12-53 U/L CLINICAL INFORMATION: 35 years old, Male; pain. TECHNIQUE: Grayscale sonographic imaging of the right upper quadrant of the abdomen was performed, assisted by color Doppler techniques. IMPRESSION: 1. No cholelithiasis. 2. Suspected small pericholecystic fluid. CT may be beneficial in further assessment as clinically indicated. 3. Hepatomegaly and increased hepatic echogenicity may reflect hepatic steatosis or intrinsic hepatocellular disease. IV Hep-Lock was established The patient's CBC shows a slightly elevated white blood cell count of 11.7 The chemistry panel is within normal limits The patient's glucose is 422 The patient's lipase is elevated at 75 The patient is being admitted The patient was given insulin 5 units IV push for the hyperglycemia The patient understands and agrees with the management The patient is being admitted at this time The patient was also given Protonix 40 mg IV push The patient was given Zofran 4 mg IV push for the nausea Images Reviewed?: Images reviewed and evaluated by me Time of 1ST Reevaluation: 14:09 Reevaluation 1ST: Unchanged Patient Education/Counseling: Diagnosis, Treatment, Prognosis Family Education/Counseling: No Family Present SEPSIS Sepsis Screen Date sepsis recognized/suspect: Jul 26, 2025 Time Sepsis recognized/suspect: 1329 Recent Procedure: Yes On Antibiotic Therapy: No Respiratory Rate >20: No Heart Rate >90: No Temp<36 C (96.8 F) or >38.3 C: No SBP <90 or MAP <65 mmHG: No New Acute Mental Status Change: No Is the patient on CPAP, BIPAP,: No Physician Orders Heplock Iv (07/26/25 14:14) Gallbladder (07/26/25 14:14) Vital Signs Date Time Temp Pulse Resp B/P (MAP) Pulse Ox O2 Delivery O2 Flow Rate FiO2 07/26/25 15:25 82 17 140/94 (109) 97 07/26/25 13:27 97.9 87 20 147/87 97 97.9 Laboratory Tests Test 07/26/25 14:23 White Blood Count 11.7 10^3/uL (4.4-10.8) H Departure 1 Departure Time of Disposition: 17:31 Impression: Primary Impression: Intractable abdominal pain Additional Impressions: Acute gastritis Qualified Codes: K29.00 - Acute gastritis without bleeding Pancreatitis Qualified Codes: K85.90 - Acute pancreatitis without necrosis or infection, unspecified Disposition: ADMITTED INPATIENT Admit to: Med Surg Condition: Fair e-Prescriptions No Active Prescriptions or Reported Meds Critical Care Note Critical Care Time?: No Stability Stability form required: Yes Unstable for transfer: ED Physician Assesment (Clinical assesment) I personally scribed for GENNARO PARISH MD ([email or web address]) on 07/26/25 at 14:13. Electronically submitted by Adilia Pavon ([facility]). I personally scribed for GENNARO PARISH MD ([email or web address]) on 07/26/25 at 16:38. Electronically submitted by Adilia Pavon ([facility]). GENNARO PARISH MD Jul 26, 2025 14:13
[2025-07-26 15:05] LABS: Hematocrit 46.0 % (41.0-53.0); Hemoglobin 16.1 g/dL (13.5-17.5); Mean Corpuscular Hemoglobin 28.1 pg (28.0-32.0); Mean Corpuscular Volume 80.5 fL (80.0-100.0); Nucleated Red Blood Cells % 0.2 %
[2025-07-26 15:10] LABS: Albumin 4.3 g/dL (3.2-4.8); Anion Gap 8 (5-15); BUN/Creatinine Ratio 7.5 (10.0-20.0); Calcium 9.6 mg/dL (8.7-10.4); Carbon Dioxide 29 mmol/L (20-31); Potassium 4.3 mmol/L (3.5-5.1); Total Protein 8.2 g/dL (5.7-8.2)
[2025-07-26 15:11] LABS: Bilirubin, Total 0.4 mg/dL (0.2-1.0)
[2025-07-26 15:12] LABS: Alanine Aminotransferase 70 U/L (7-40); Alkaline Phosphatase 133 U/L (46-116); Blood Urea Nitrogen 8 mg/dL (9-23); Chloride 97 mmol/L (98-107); Lipase 75 U/L (12-53); Sodium 134 mmol/L (136-145)
[2025-07-26 15:14] LABS: Glucose 422 mg/dL (74-106)
[2025-07-26 15:25] VITALS: BP 140/94; PULSE 82; RESP 17; O2SAT 97
--- NOTE | 2025-07-26 15:27 | DVH ---
CLINICAL INFORMATION: 35 years old, Male; pain. TECHNIQUE: Grayscale sonographic imaging of the right upper quadrant of the abdomen was performed, assisted by color Doppler techniques. COMPARISON: US GALLBLADDER on DOS: 02/11/25 FINDINGS: The gallbladder wall measures 2 mm in thickness, within normal limits. No stones are seen. Negative reported sonographic Chan sign. There is possible small pericholecystic fluid. The common bile duct measures 5 mm in diameter, within normal limits. The liver measures 20.3 cm. There is no intrahepatic biliary dilatation. There is increased hepatic echogenicity. The pancreas is obscured, likely by bowel gas. The right kidney measures 13.3 cm. There is no mass, hydronephrosis, or calculus. IMPRESSION: 1. No cholelithiasis. 2. Suspected small pericholecystic fluid. CT may be beneficial in further assessment as clinically indicated. 3. Hepatomegaly and increased hepatic echogenicity may reflect hepatic steatosis or intrinsic hepatocellular disease.
== END 2025-07-26 23:24 | disposition left against medical advice (07) ==
LOC: ER 13:18
DX: K29.00 Acute gastritis without bleeding (principal); K85.90 Acute pancreatitis without necrosis or infection, unspecified; R10.13 Epigastric pain; E11.65 Type 2 diabetes mellitus with hyperglycemia; Z90.49 Acquired absence of other specified parts of digestive tract; Z88.0 Allergy status to penicillin; Z79.4 Long term (current) use of insulin
CPT/HCPCS: 36415; 76705; 80053; 83690; 85025